=== PATIENT | male | born 1940 | race Caucasian/White ===

== ENCOUNTER 2019-03-07 09:37 | Inpatient (IN) ==
[2019-03-07] MEDS ORDERED: Ipratropium/Albuterol Neb 3 ML IH ONE (10:28)
--- NOTE | 2019-03-07 10:29 | Emergency Department Note ---
Disposition Clinical Impression: Cough, Elevated troponin, NSTEMI (non-ST elevated myocardial infarction) Chest pain Qualifiers: Chest pain type: unspecified Qualified Code(s): R07.9 - Chest pain, unspecified Abdominal pain Qualifiers: Abdominal location: lower abdomen, unspecified Qualified Code(s): R10.30 - Lower abdominal pain, unspecified Disposition: Admitted As Inpatient Condition: Undetermined Referrals: Kd Rod MD [Primary Care Provider] - Forms: ED Satisfaction Letter, Work/School Release Time of Disposition: 13:20 General Adult HPI - General Chief complaint: ED General Medical Stated complaint: Cough Time Seen by Provider: 03/07/19 09:49 Source: patient Mode of arrival: private vehicle Limitations: no limitations Nursing Notes Reviewed: Yes Vital Signs Reviewed: Yes - History of Present Illness HPI Narrative: Patient is a 78-year-old male with past medical history including hypertension and GERD presenting with a chief complaint of cough, low back pain, lower abdominal pain. The patient states for the past 4 weeks, he complains of a chronic cough. He states intermittently he will cough up yellowish sputum. She denies fevers or chills. He states he has a remote history of smoking and has no diagnosis of COPD, does not wear oxygen. He denies history of coronary artery disease as well. He complains of intermittent episodes of left-sided chest pain when he is working or ambulating. He states it does not happen all the time. This last occurred 1-1/2 weeks ago. Symptoms resolve with rest and only lasts several minutes. He states he used to be on aspirin however stopped it many months ago. With the chest pain started, he resumed his aspirin. He states once he resumed his aspirin he has had no further episodes. He denies shortness of breath, nausea, diaphoresis with these episodes. He states this is new for him. For the past week, he complains of progressively worsening lower abdominal pain radiating into his lower back pain the last 2 days. He does have a prior history of back surgery and denies trauma or recent infection. He denies history of IV drug use. He denies weakness, urinary incontinence, urinary retention, bowel incontinence, fevers, perianal numbness, lower extremity numbness. He denies headaches. Pain Scale: 9 - Related Data Allergies Allergy/AdvReac Type Severity Reaction Status Date / Time No Known Allergies Allergy Verified 03/07/19 09:43 All systems ED: reviewed and negative except as stated. Review of Systems: As Per HPI Constitutional: Denies: fever, chills ENT ED: Denies: congestion Cardiovascular: Reports: chest pain. Denies: palpitations Respiratory: Reports: cough, dyspnea Gastrointestinal: Reports: abdominal pain. Denies: nausea, vomiting, diarrhea, melena, hematochezia Genitourinary: Denies: dysuria Musculoskeletal: Reports: back pain. Denies: neck pain Neurological: Denies: headache, weakness, numbness, paresthesias, confusion, abnormal gait Past Medical History - Past Medical History Attestation: Yes The following information was validated with the patient. Source: patient Physical Exam - General Limitations: no limitations General appearance: alert, in no apparent distress - Head Head exam: atraumatic, normocephalic - Eye Eye exam: Present: normal appearance, EOMI - ENT ENT exam: normal exam, normal oropharynx, mucous membranes moist - Neck Neck exam: Present: normal inspection, trachea midline - Chest Chest inspection: Present: normal inspection, symmetric chest wall rise - Respiratory Respiratory exam: Present: other (Diminished breath sounds bilaterally with bilateral expiratory wheezing). Absent: respiratory distress, accessory muscle use - Cardiovascular Cardiovascular exam: Present: regular rate, normal rhythm, normal heart sounds, other (bilateral radial, dorsalis pedis, posterior tibialis pulses intact) - Abdominal Exam Abdominal exam: Present: soft, Non-Tender. Absent: distention - Extremities Exam Extremities exam: Present: normal capillary refill. Absent: pedal edema, calf tenderness - Back Exam Back exam: Present: normal inspection, other (Lumbar midline spinal incision well-healed without cellulitic changes or drainage). Absent: tenderness - Neurological Exam Neurological exam: Present: alert, oriented X3, CN II-XII intact. Absent: motor sensory deficit - Expanded Neurological Exam Cerebellar function: finger to nose: Normal Motor strength - LUE: 5/5 Motor strength - RUE: 5/5 Motor strength - LLE: 5/5 Motor strength - RLE: 5/5 Upper motor neuron exam: dinah neglect: Absent bilaterally Sensory exam upper extremity: light touch: Normal Sensory exam lower extremity: light touch: Normal - Psychiatric Psychiatric exam: Present: normal affect, normal mood - Skin Skin exam: Present: warm, dry. Absent: diaphoresis, pallor Course Vital Signs Temperature 98.6 F 03/07/19 09:42 Pulse Rate 56 03/07/19 09:42 Respiratory Rate 18 03/07/19 09:42 Blood Pressure 165/79 03/07/19 09:42 O2 Sat by Pulse Oximetry 96 03/07/19 09:42 Temperature 98.6 F 03/07/19 10:43 Pulse Rate 55 03/07/19 12:21 Respiratory Rate 18 03/07/19 12:21 Blood Pressure 150/65 03/07/19 12:21 O2 Sat by Pulse Oximetry 97 03/07/19 12:21 Oxygen Delivery Oxygen Delivery Room Air Medical Decision Making - MDM Narrative Medical decision making narrative: Patient is presenting with multiple complaints. He is afebrile and vitals are stable. No gross abnormalities on physical examination. He does have diminished breath sounds with mild expiratory wheezing bilaterally. We will give him DuoNeb treatment. Will also further evaluate with chest x-ray as he has a four-week history of a cough. We will also obtain ACS workup for his chest pain. His last chest pain was one and half weeks ago. He is resumed his aspirin. He has no history of coronary artery disease or stent placement. We will also obtain CT abdomen and pelvis without contrast to evaluate for any stones or acute abnormality for his abdominal and back pain. Urinalysis will also be obtained. Disposition is pending workup. 11:45 Patient has elevated troponin and no chest pain here. No acute ischemic changes. Will give aspirin. We will start heparin. He will require admission. Cardiol ogy will be paged. He is chest pain-free at this time. D-dimer is not elevated. CXR shows no pneumonia. 12:40 CT abd and pelvis without acute abnormality. Discussed with Dr. Reid, Cardiology, who will be placed on consult. No further recommendations. Hospitalist paged for admission. 13:15 Discussed with hospitalist, Dr. Yanes, who accepts admission. - Medical Records Medical records reviewed: Yes I reviewed the patient's medical records. - Lab Data Lab results reviewed: Yes I reviewed the patient's lab results. Result diagrams: 03/07/19 12:46 03/07/19 10:44 Lab Results 03/07/19 03/07/19 03/07/19 Range/Units 10:44 10:44 10:44 WBC 6.2 (4.3-11.1) K/mcL RBC 4.82 (4.19-5.50) M/mcL Hgb 15.1 (12.9-16.9) g/dL Hct 44.6 (37.5-50.1) % MCV 92.5 (83.0-100.0) fL MCH 31.3 (28.0-33.3) pg MCHC 33.9 (31.6-35.5) g/dL RDW 13.0 (11.5-14.5) % Plt Count 135 L (140-400) K/mcL MPV 11.7 (9.4-12.4) fL Immature Gran % 0.3 (0-4) % Seg Neutrophils % 73.6 % Lymphocytes % 10.8 % Monocytes % 14.2 % Eosinophils % 0.5 % Basophils % 0.6 % Neutrophils # 4.6 (1.6-8.9) K/mcL Lymphocytes # 0.7 (0.6-4.6) K/mcL Monocytes # 0.9 (0.0-1.3) K/mcL Eosinophils # 0.0 (0.0-0.6) K/mcL Basophils # 0.0 (0.0-0.2) K/mcL PT (9.4-12.1) Seconds INR D-Dimer 419 (0-500) ng/mLFEU Heparin Anti-Xa, Unfract (0.30-0.70) IU/mL Sodium 135 L (136-145) mEq/L Potassium 3.5 (3.5-5.1) mEq/L Chloride 97 L (98-107) mEq/L Carbon Dioxide 30 H (23-29) mEq/L BUN 21 (8-23) mg/dL Creatinine 0.88 (0.70-1.30) mg/dL Est GFR ( Amer) > 60 (> 60) Est GFR (Non-Af Amer) > 60 (> 60) BUN/Creatinine Ratio 24 (6-26) Glucose 112 H (70-105) mg/dL Calculated Osmolality 284 (280-300) Calcium 9.4 (8.6-10.3) mg/dL Total Bilirubin 0.5 (0.3-1.0) mg/dL Direct Bilirubin 0.2 (0.0-0.2) mg/dL Indirect Bilirubin 0.3 (0.0-1.2) mg/dL AST 48 H (13-39) Units/L ALT 29 (7-52) Units/L Alkaline Phosphatase 44 (34-104) Units/L Troponin I 0.36 H* (< 0.04) ng/mL Serum Total Protein 6.9 (6.4-8.9) g/dL Albumin 4.7 (3.5-5.7) g/dL Globulin 2.2 L (2.4-3.5) g/dL Albumin/Globulin Ratio 2.1 (1.1-2.2) Lipase 29 (11-82) Units/L Urine Color (Yellow) Urine Clarity (Clear) Urine pH (5.0-8.0) pH Units Ur Specific [place] (1.010-1.025) Urine Protein (Neg-Trace) mg/dL Urine Glucose (UA) (Normal) mg/dL Urine Ketones (Negative) mg/dL Urine Blood (Negative) Urine Nitrite (Negative) Urine Bilirubin (Negative) Urine Urobilinogen (Normal) mg/dL Ur Leukocyte Esterase (Negative) Urine Microscopic RBC (0-3) per hpf Urine Microscopic WBC (0-3) per hpf Ur Squamous Epith Cells (None-Few) per lpf Amorphous Sediment (Few) Urine Bacteria (None-Few) per hpf Hyaline Casts (None-Few) per lpf Ur Culture Indicated? (NO) 03/07/19 03/07/19 03/07/19 Range/Units 11:13 12:46 12:46 WBC 6.1 (4.3-11.1) K/mcL RBC 4.88 (4.19-5.50) M/mcL Hgb 15.0 (12.9-16.9) g/dL Hct 45.4 (37.5-50.1) % MCV 93.0 (83.0-100.0) fL MCH 30.7 (28.0-33.3) pg MCHC 33.0 (31.6-35.5) g/dL RDW 13.1 (11.5-14.5) % Plt Count 127 L (140-400) K/mcL MPV 11.2 (9.4-12.4) fL Immature Gran % (0-4) % Seg Neutrophils % % Lymphocytes % % Monocytes % % Eosinophils % % Basophils % % Neutrophils # (1.6-8.9) K/mcL Lymphocytes # (0.6-4.6) K/mcL Monocytes # (0.0-1.3) K/mcL Eosinophils # (0.0-0.6) K/mcL Basophils # (0.0-0.2) K/mcL PT 11.4 (9.4-12.1) Seconds INR 1.0 D-Dimer (0-500) ng/mLFEU Heparin Anti-Xa, Unfract 0.01 L (0.30-0.70) IU/mL Sodium (136-145) mEq/L Potassium (3.5-5.1) mEq/L Chloride (98-107) mEq/L Carbon Dioxide (23-29) mEq/L BUN (8-23) mg/dL Creatinine (0.70-1.30) mg/dL Est GFR ( Amer) (> 60) Est GFR (Non-Af Amer) (> 60) BUN/Creatinine Ratio (6-26) Glucose (70-105) mg/dL Calculated Osmolality (280-300) Calcium (8.6-10.3) mg/dL Total Bilirubin (0.3-1.0) mg/dL Direct Bilirubin (0.0-0.2) mg/dL Indirect Bilirubin (0.0-1.2) mg/dL AST (13-39) Units/L ALT (7-52) Units/L Alkaline Phosphatase (34-104) Units/L Troponin I (< 0.04) ng/mL Serum Total Protein (6.4-8.9) g/dL Albumin (3.5-5.7) g/dL Globulin (2.4-3.5) g/dL Albumin/Globulin Ratio (1.1-2.2) Lipase (11-82) Units/L Urine Color Yellow (Yellow) Urine Clarity Cloudy A (Clear) Urine pH 8.0 (5.0-8.0) pH Units Ur Specific [place] 1.016 (1.010-1.025) Urine Protein Negative (Neg-Trace) mg/dL Urine Glucose (UA) Normal (Normal) mg/dL Urine Ketones Negative (Negative) mg/dL Urine Blood Negative (Negative) Urine Nitrite Negative (Negative) Urine Bilirubin Negative (Negative) Urine Urobilinogen Normal (Normal) mg/dL Ur Leukocyte Esterase Negative (Negative) Urine Microscopic RBC 0-3 (0-3) per hpf Urine Microscopic WBC 0-3 (0-3) per hpf Ur Squamous Epith Cells Moderate H (None-Few) per lpf Amorphous Sediment Moderate H (Few) Urine Bacteria None Seen (None-Few) per hpf Hyaline Casts None Seen (None-Few) per lpf Ur Culture Indicated? NO (NO) - Radiology Data Radiology results reviewed: Yes I reviewed the patient's radiology results. Abdomen/Pelvis CT 03/07/19 10:27 IMPRESSION: No acute findings. D/ / 03/07/2019 12:40:58 Blair Swenson MD / aixa Interpreting Provider: Blair Swenson MD Chest X-Ray 03/07/19 10:28 IMPRESSION: No acute cardiopulmonary process. D/ / Iva Sanches MD / Iva Sanches MD Interpreting Provider: Iva Sanches MD - EKG Data EKG #1 EKG attestation: Yes I reviewed and interpreted this EKG. EKG results narrative: EKG obtained at 0 957 shows sinus rhythm with heart rate 53, DE interval 196, QRS duration 111, QTC 423. No ST elevation. 0.[address] depression in V6. No reciprocal changes. No old EKG to compare to. Critical Care Time Critical Care Time: Yes Total Critical Care Time: 35 Attestation: Critical care time for this patient was 35 minutes managing an STEMI and heparin drip. Attestation Statement - Attestation Attestation: Patient was seen with resident physician. I reviewed the history, physical, assessment and plan, and agree with the findings. I also personally evaluated this patient and had [id number] time with this patient. 78-year-old male presents to Department with 3 primary complaints first is shortness of breath this ultimately is what prompted his visit. Second toe is cough and when he coughs he has both back pain and abdominal pain. The pain is in the lower back in the anterior portion the abdomen which she feels is more distended than usual. He says he only experiences the pain with cough not with movement. He says his cough has been so bad that he will cough to the point that he really feels like he cannot stop. He said his is recently had an upper rest for infection he feels like he may have caught her. He denies fevers or chills. He does have a history of some chest discomfort when he was doing work approximately week ago. Patient states that he had been on a daily aspirin but then discontinued use and then he developed this chest discomfort and he restarted the aspirin he has not had a problem since. Review of systems as above remainder negative. Physical exam vital signs are stable. ENT is unremarkable. Heart regular rhythm and rate. Lungs largely clear. Possibly some mild crackles in the bases. No increased work of breathing. Abdomen is soft and mildly distended nontender. Extremities unremarkable. Neurologically intact. Skin no rashes. Psych normal. ED course. With the patient's age we will do cardiac workup as well as a CT scan the abdomen and pelvis. We will also treat with some breathing treatments. Initial EKG showed a sinus rhythm without acute abnormalities except for a 0.[address] depression in one lead only V6. Patient's troponin however came back positive. The remainder is negative was largely unremarkable. We discussed with cardiology. He was started on heparin and aspirin. Results of the findings were explained to the patient and family. We discussed then with the hospitalist service to arrange for admission. They agreed to accept the patient. Critical care time 35 minutes. Hemodynamically he was stable throughout his stay. Agree with resident physician assessment and plan per
[2019-03-07 11:12] LABS: Basophils % 0.6 %; Eosinophils % 0.5 %; Hematocrit 44.6 % (37.5-50.1); Hemoglobin 15.1 g/dL (12.9-16.9); Immature Granulocytes % 0.3 % (0-4); Lymphocytes # 0.7 K/mcL (0.6-4.6); Lymphocytes % 10.8 %; Mean Corpuscular HGB Conc 33.9 g/dL (31.6-35.5); Mean Corpuscular Hemoglobin 31.3 pg (28.0-33.3); Mean Corpuscular Volume 92.5 fL (83.0-100.0); Mean Platelet Volume 11.7 fL (9.4-12.4); Monocytes # 0.9 K/mcL (0.0-1.3); Monocytes % 14.2 %; Neutrophils # 4.6 K/mcL (1.6-8.9); Platelet Count 135 K/mcL (140-400); Red Blood Count 4.82 M/mcL (4.19-5.50); Segmented Neutrophils % 73.6 %
[2019-03-07 11:23] LABS: Bilirubin,Urine Negative (Negative); Blood,Urine Negative (Negative); Clarity,Urine Cloudy (Clear); Color,Urine Yellow (Yellow); Glucose,Urine (UA) Normal (Normal); Ketones,Urine Negative (Negative); Leukocyte Esterase,Urine Negative (Negative); Nitrite,Urine Negative (Negative); Protein,Urine Negative (Neg-Trace); Specific Gravity,Urine 1.016 (1.010-1.025); Urobilinogen,Urine Normal (Normal)
[2019-03-07 11:25] LABS: Bacteria,Urine None Seen per hpf (None-Few); Hyaline Casts,Urine None Seen per lpf (None-Few); Squamous Epithelial Cell,Urine Moderate per lpf (None-Few); WBC,Urine 0-3 per hpf (0-3)
[2019-03-07 11:32] LABS: Amorphous Sediment,Urine Moderate (Few); RBC,Urine 0-3 per hpf (0-3)
[2019-03-07 11:37] LABS: Alanine Aminotransferase 29 Units/L (7-52); Albumin 4.7 g/dL (3.5-5.7); Albumin/Globulin Ratio 2.1 (1.1-2.2); Alkaline Phosphatase 44 Units/L (34-104); Aspartate Amino Transferase 48 Units/L (13-39); BUN/Creatinine Ratio 24 (6-26); Bilirubin,Direct 0.2 mg/dL (0.0-0.2); Bilirubin,Indirect 0.3 mg/dL (0.0-1.2); Bilirubin,Total 0.5 mg/dL (0.3-1.0); Blood Urea Nitrogen 21 mg/dL (8-23); Calcium 9.4 mg/dL (8.6-10.3); Carbon Dioxide 30 mEq/L (23-29); Chloride 97 mEq/L (98-107); Globulin 2.2 g/dL (2.4-3.5); Glucose 112 mg/dL (70-105); Lipase 29 Units/L (11-82); Osmolality,Calculated 284 (280-300); Potassium 3.5 mEq/L (3.5-5.1); Sodium 135 mEq/L (136-145); Total Protein 6.9 g/dL (6.4-8.9); Troponin I 0.36 ng/mL (< 0.04); eGFR For Non-African Americans > 60 (> 60)
[2019-03-07] MEDS ORDERED: Aspirin 81 MG TAB.CHEW PO ONE (11:40)
[2019-03-07] MEDS ORDERED: *HR* Heparin 5,000 UNIT/ML VIAL IVP ONE (12:23)
[2019-03-07] MEDS ORDERED: *HR* Heparin 5,000 UNIT/ML VIAL IVP PRN ×2 (12:23)
[2019-03-07] MEDS: Heparin 25,000 UNIT/250 ML D5W 25,000 UNIT/250 ML IV.SOLN IVC SCH (12:53)
[2019-03-07 13:05] LABS: Hematocrit 45.4 % (37.5-50.1); Mean Corpuscular Hemoglobin 30.7 pg (28.0-33.3); Mean Platelet Volume 11.2 fL (9.4-12.4); Platelet Count 127 K/mcL (140-400); Red Blood Count 4.88 M/mcL (4.19-5.50); Red Cell Distribution Width 13.1 % (11.5-14.5)
[2019-03-07 13:12] LABS: Heparin anti-factor XA UFH 0.01 IU/mL (0.30-0.70)
[2019-03-07 13:13] LABS: Prothrombin Time 11.4 Seconds (9.4-12.1)
[2019-03-07] MEDS ORDERED: *HR* HYDROcodone/Acet 5/325 mg TABLET PO PRN (13:46)
[2019-03-07] MEDS ORDERED: Ondansetron 4 MG/2 ML VIAL IVP PRN (13:46)
[2019-03-07] MEDS ORDERED: Naloxone 0.4 MG/ML INJ IVP PRN (13:46)
[2019-03-07] MEDS ORDERED: Acetaminophen 325 MG TABLET PO PRN (13:46)
[2019-03-07] MEDS ORDERED: traMADol 50 MG TABLET PO PRN (13:46)
--- NOTE | 2019-03-07 13:51 | Internal Med History&Physical ---
Date of Encounter: 03/07/19 Time of Encounter: 13:20 Internal Medicine - H&P: HPI Chief complaint: chest pain and dyspnea on exertion, cough Admitted From: Home History of present illness: Mr. Zuniga is a 78 year old male with history of hypertension, HLD, GERD, ex- tobacco use, who presented to the ED with 4 week history of cough. Also complai ns of intermittent left-sided chest pain, SOB, and left arm numbness on exertion. 6-7/10, sharp, no obvious relieving factor. He was also spitting up clear phlegm for the last few days. Denies any fever/chills, nausea/vomiting, diaphoresis, palpitation, orthopnea, PND, or leg swelling. No sick contacts. His other complaint was that of chronic low back pain. No change in bowel habits, urinary/fecal incontinence, or numbness on his buttocks. Denies any dysuria, hematuria, or urinary frequency. In the ED, he was afebrile and hemodynamically stable. Labwork showed troponin of 0.36 with EKG demonstrating Q-waves in lead 3 and aVF. QTc was 423 ms. X-ray was negative for any acute cardiopulmonary process and d-dimer was normal. Patient was loaded with aspirin, started heparin drip, duoneb, and admitted for further management with cardiac consultation. Past Med Surg Social Fam HX - Past Medical History Attestation: Yes The following information was validated with the patient. Medical history: GERD, hyperlipidemia, hypertension Psychiatric history: no psych history - Past Surgical History Additional surgical history: back surgery x 2 - Social History Smoking Status: Former smoker Smokeless Tobacco Status: No Alcohol use: none Drug use: none - Additional Family History Additional family history: No family history of premature CAD Internal Medicine - H&P: Meds Allergy/AdvReac Type Severity Reaction Status Date / Time No Known Allergies Allergy Verified 03/07/19 09:43 All Systems PM: A 10-system review of systems was performed and is negative for pertinent findings except as documented above in the HPI. - Constitutional Vitals: Temp Pulse Resp BP Pulse Ox 98.6 F 55 18 150/65 97 03/07/19 10:43 03/07/19 12:21 03/07/19 12:21 03/07/19 12:21 03/07/19 12:21 Exam: General: Alert and oriented, not in acute distress. HEENT:EOMI, pupils equal, round and reactive. Cardiovascular:Normal S1 & S2, No JVD. Pulse regular. Lungs: Minimal wheezes at the left lung base Abdomen:Soft, non-tender, no rebound/guarding/rigidity. Extremities:No deformity or swelling Neurological:Normal cognition and motor skills. Non-focal Skin:Normal color, no rash, no lesions. Pulses:Carotid and radial pulses normal +2. Rest of the physical exam is non contributory Internal Med - H&P Results - Labs CBC & Chem 7: 03/07/19 12:46 03/07/19 10:44 Labs: Short CBC 03/07/19 03/07/19 Range/Units 10:44 12:46 WBC 6.2 6.1 (4.3-11.1) K/mcL Hgb 15.1 15.0 (12.9-16.9) g/dL Hct 44.6 45.4 (37.5-50.1) % Plt Count 135 L 127 L (140-400) K/mcL Neutrophils # 4.6 (1.6-8.9) K/mcL BMP 03/07/19 10:44 Sodium 135 L Potassium 3.5 Chloride 97 L Carbon Dioxide 30 H BUN 21 Creatinine 0.88 Glucose 112 H Calcium 9.4 Cardiac Enzymes 03/07/19 Range/Units 10:44 Troponin I 0.36 H* (< 0.04) ng/mL Liver Function 03/07/19 Range/Units 10:44 Total Bilirubin 0.5 (0.3-1.0) mg/dL Direct Bilirubin 0.2 (0.0-0.2) mg/dL AST 48 H (13-39) Units/L ALT 29 (7-52) Units/L Alkaline Phosphatase 44 (34-104) Units/L Albumin 4.7 (3.5-5.7) g/dL Urine 03/07/19 Range/Units 11:13 Urine Color Yellow (Yellow) Urine Clarity Cloudy A (Clear) Urine pH 8.0 (5.0-8.0) pH Units Ur Specific [place] 1.016 (1.010-1.025) Urine Protein Negative (Neg-Trace) mg/dL Urine Glucose (UA) Normal (Normal) mg/dL - Impressions ITS Impressions Abdomen/Pelvis CT 03/07/19 10:27 IMPRESSION: No acute findings. D/ / 03/07/2019 12:40:58 Blair Swenson MD / aixa Interpreting Provider: Blair Swenson MD Chest X-Ray 03/07/19 10:28 IMPRESSION: No acute cardiopulmonary process. D/ / Iva Sanches MD / Iva Sanches MD Interpreting Provider: Iva Sanches MD - Assessment and Plan (1) NSTEMI (non-ST elevated myocardial infarction) Current Visit: Yes Status: Acute Assessment and plan: Presented with chronic cough but also with dyspnea and chest pain on exertion hx of HTN, HLD, ex-tobacco use troponin 0.36 with EKG showing Q waves in III, aVF. No ST elevation loaded with ASA, continue 81mg daily Continue heparin drip Statin to Lipitor 80 mg at bedtime Start beta duran trend troponin, telemetry A1c, lipid panel tomorrow echocardiogram cardiology consult, will pre-emptively keep him NPO after midnight (2) Cough Current Visit: Yes Status: Acute Assessment and plan: History of tobacco use, not sure if he is also on lisinopril at home for HTN endorses worsening cough with minimal sputum production. Noted to be wheezing on presentation which is not as prominent at the time of my exam will treat as per mild COPD exacerbation with PO Prednisone and bronchodilators outpatient PFT (3) Hypertension Current Visit: Yes Status: Chronic Assessment and plan: Beta duran started as above Qualifiers: Hypertension type: essential hypertension Qualified Code(s): I10 - Essential (primary) hypertension (4) Hyperlipidemia Current Visit: Yes Status: Chronic Assessment and plan: Statin switched to Lipitor Qualifiers: Hyperlipidemia type: unspecified Qualified Code(s): E78.5 - Hyperlipidemia, unspecified (5) DVT prophylaxis Current Visit: Yes Status: Acute Assessment and plan: hep gtt - Time Spent With Patient Total time spent is greater than 50% in coordination of care (as documented) at patient's floor/unit and/or counseling patient: Greater than 35 minutes
[2019-03-07] MEDS: Ipratropium/Albuterol Neb 3 ML IH SCH ×3 (16:15→23:57)
[2019-03-07] MEDS: predniSONE 20 MG TABLET PO SCH (16:23)
[2019-03-08 01:54] LABS: Basophils % 0.1 %; Hematocrit 43.1 % (37.5-50.1); Hemoglobin 14.5 g/dL (12.9-16.9); Immature Granulocytes % 0.4 % (0-4); Lymphocytes # 0.6 K/mcL (0.6-4.6); Lymphocytes % 9.2 %; Mean Corpuscular HGB Conc 33.6 g/dL (31.6-35.5); Mean Corpuscular Volume 92.1 fL (83.0-100.0); Mean Platelet Volume 11.2 fL (9.4-12.4); Monocytes # 0.4 K/mcL (0.0-1.3); Monocytes % 5.9 %; Neutrophils # 5.7 K/mcL (1.6-8.9); Platelet Count 127 K/mcL (140-400); Red Blood Count 4.68 M/mcL (4.19-5.50); Red Cell Distribution Width 12.9 % (11.5-14.5); Segmented Neutrophils % 84.4 %
[2019-03-08 02:13] LABS: BUN/Creatinine Ratio 21 (6-26); Blood Urea Nitrogen 19 mg/dL (8-23); Calcium 9.1 mg/dL (8.6-10.3); Carbon Dioxide 28 mEq/L (23-29); Chloride 92 mEq/L (98-107); Glucose 167 mg/dL (70-105); Osmolality,Calculated 274 (280-300); Potassium 3.4 mEq/L (3.5-5.1); Sodium 129 mEq/L (136-145); eGFR For Non-African Americans > 60 (> 60)
[2019-03-08 02:14] LABS: Chol/HDL Ratio 2.7 (0-4.9)
[2019-03-08] MEDS: Ipratropium/Albuterol Neb 3 ML IH SCH ×6 (04:06→23:59)
[2019-03-08 07:54] LABS: Estimated Average Glucose 131 mg/dl; Hemoglobin A1C 6.2 %
[2019-03-08] MEDS: Aspirin Enteric Coated 81 MG Tablet PO SCH (08:43)
[2019-03-08] MEDS: predniSONE 20 MG TABLET PO SCH (08:43)
--- NOTE | 2019-03-08 09:18 | Cardiology Consult Note ---
Date of Encounter: 03/08/19 Time of Encounter: 07:30 Assessment and Plan (1) NSTEMI (non-ST elevated myocardial infarction) Current Visit: Yes Status: Acute Peak troponin 0.36 in the setting of cough; describes symptoms consistent with UA. Chest pain free upon exam, ECG upon admission shows inferior Q waves. No prior CV history. Continue heparin gtt, asa, statin, and BB. TTE pending. A/R/B of [facility] with possible PCI discussed, he is agreeable to proceed. NPO after MN except medications, plan for [facility] on 03/09/19. Discussion w patient/family: The assessment and plan as outlined above was discussed with the patient and/or family members who expressed understanding and agreement. All questions were answered. Thank you for involving us in the care of your patient. Please call with any questions. The patient will be discussed and reviewed with Dr. Reid; changes to be made accordingly. History of Present Illness Consult date: 03/08/19 Requesting physician: Ramu aCm Consult reason: Elevated trop Chief complaint: Cough History of present illness: Mr. Zuniga is a 78 year old male hypertension, HLD, GERD, ex-tobacco use, who presented to the ED with 4 week history of cough. Reports cough associated with dyspnea and sputum production continued to worsen which prompted ED evaluation. Upon further review, he complaints of midsternal "indigestion" associated with exertion/activity--particularly while walking up incline and carrying water bucket. Midsternal chest discomfort radiates bilateral arms, lasts 10-20 minutes and improves with rest. Cardiology consulted for elevated troponin, peak 0.36 with downtrend. He is chest pain free upon exam today. ECG show inferior Q waves. No prior CV testing. Past Med Surg Social Fam HX - Past Medical History Attestation: Yes The following information was validated with the patient. Source: patient Medical history: GERD, hyperlipidemia, hypertension Psychiatric history: no psych history - Past Surgical History Additional surgical history: back surgery x 2 - Social History Smoking Status: Former smoker Smokeless Tobacco Status: No Alcohol use: none Drug use: none - Family History Mother History Unknown: Yes Father Hx Family Cardiac Disorders: Yes (HI) Hx Family Cancer: Yes (Colon) Hx Family Endocrine Disorder: Yes (DM) Hx Family Musculoskeletal Disorders: Yes (Amputation) Medications and Allergies Allergy/AdvReac Type Severity Reaction Status Date / Time No Known Allergies Allergy Verified 03/07/19 09:43 All Systems Review: The remainder of the systems were reviewed and are negative - Cardiovascular Cardiovascular: as per HPI Physical Examination Vital Signs, Last 4 Hours Temp Pulse Resp BP Pulse Ox 03/08/19 07:23 17 96 03/08/19 07:16 98.3 F 67 17 135/67 96 General: Conversant, No Apparent Distress HEENT: Atraumatic, Normocephaly, Mucus Membranes Moist Neck: No JVD, Normal carotid pulses Cardiac: Reg Rate and Rhythm, Normal S1 and S2, No Murmur Lungs: Normal Breath Sounds, No Wheeze, Rales, Rhonchi Neuro: Alert and responsive, No focal deficits noted Abdomen: Soft, Non-Tender Skin: No rashes noted on visualized skin Musculoskeletal: No Chest Wall Tenderness Extremities: No Clubbing, No Cyanosis, No Edema, Normal Pulses Results 03/08/19 01:35 03/08/19 01:35 Lab Results 03/07/19 03/07/19 03/07/19 10:44 10:44 10:44 WBC 6.2 Hgb 15.1 Hct 44.6 Plt Count 135 L INR D-Dimer 419 Sodium 135 L Potassium 3.5 Chloride 97 L Carbon Dioxide 30 H BUN 21 Creatinine 0.88 Glucose 112 H Calcium 9.4 Total Bilirubin 0.5 AST 48 H ALT 29 Alkaline Phosphatase 44 Troponin I 0.36 H* Lipase 29 03/07/19 03/07/19 03/07/19 12:46 12:46 17:31 WBC 6.1 Hgb 15.0 Hct 45.4 Plt Count 127 L INR 1.0 D-Dimer Sodium Potassium Chloride Carbon Dioxide BUN Creatinine Glucose Calcium Total Bilirubin AST ALT Alkaline Phosphatase Troponin I 0.31 H* Lipase 03/07/19 03/08/19 03/08/19 22:58 01:35 01:35 WBC 6.8 Hgb 14.5 Hct 43.1 Plt Count 127 L INR D-Dimer Sodium 129 L Potassium 3.4 L Chloride 92 L Carbon Dioxide 28 BUN 19 Creatinine 0.91 Glucose 167 H Calcium 9.1 Total Bilirubin AST ALT Alkaline Phosphatase Troponin I 0.18 H* Lipase Active Medications Acetaminophen (Tylenol) 650 mg PO Q6HR PRN PRN Reason: Mild Pain/Fever Stop: 09/06/19 13:47 Hydrocodone Bitart/Acetaminophen ([place] 5-325 Mg) 1 tab PO Q6HR PRN PRN Reason: Severe Pain Stop: 09/06/19 13:47 Albuterol/Ipratropium (Duoneb) 3 ml IH [id number] [facility] Stop: 09/06/19 16:01 Last Admin: 03/08/19 07:23 Dose: 3 ml Documented by: Aspirin (Aspirin Ec) 81 mg PO DAILY [facility] Stop: 09/07/19 09:01 Last Admin: 03/08/19 08:43 Dose: 81 mg Documented by: Atorvastatin Calcium (Lipitor) 80 mg PO HS [facility] Stop: 09/06/19 21:01 Last Admin: 03/07/19 20:42 Dose: 80 mg Documented by: Heparin Sodium (Porcine) (Heparin) 4,000 unit IVP Q6HR PRN PRN Reason: SEE COMMENTS Stop: 09/06/19 12:24 Heparin Sodium (Porcine) (Heparin) 2,000 unit IVP Q6H PRN PRN Reason: SEE COMMENTS Stop: 09/06/19 12:24 Heparin Sodium/Dextrose (Heparin 25,000 Unit/250 Ml D5w) 25,000 unit in 250 mls @ 9.29 mls/hr IVC .Q24H [facility]; Protocol Stop: 09/06/19 12:31 Last Titration: 03/08/19 02:11 Dose: 11.96 unit/kg/hr, 10.1 mls/hr Documented by: Metoprolol Tartrate (Lopressor) 12.5 mg PO BID [facility] Stop: 09/06/19 21:01 Last Admin: 03/08/19 08:43 Dose: 12.5 mg Documented by: Naloxone HCl (Narcan) 0.4 mg IVP Q2MPRN PRN PRN Reason: SEE COMMENTS Stop: 09/06/19 13:47 Ondansetron HCl (Zofran) 4 mg IVP Q8HR PRN PRN Reason: Nausea And Vomiting Stop: 09/06/19 13:47 Prednisone (Prednisone) 40 mg PO DAILY [facility] Stop: 09/06/19 14:01 Last Admin: 03/08/19 08:43 Dose: 40 mg Documented by: Tramadol HCl (Ultram) 50 mg PO Q6HR PRN PRN Reason: Moderate Pain Stop: 09/06/19 13:47 - Imaging and Cardiology Echo: pending Other Results: 12 hour tele: avg hR=76 SR. - EKG Interpretation EKG results cardiology: personally reviewed Consult Discharge Plan - Plan Referrals: Kd Rod MD [Primary Care Provider] -
--- NOTE | 2019-03-08 09:39 | Internal Med Progress Note ---
Hospitalist Progress Note - Encounter Date of Encounter: 03/08/19 Time of Encounter: 07:30 - Subjective Interval History: Patient states that he had intermittent episodes of left-sided chest discomfort but nothing that warranted administration of nitroglycerin or analgesics. No fever overnight. Denies any palpitation, nausea/vomiting, or diaphoresis. - Exam Vitals: Temp Pulse Resp BP Pulse Ox 98.3 F 67 17 135/67 96 03/08/19 07:16 03/08/19 07:16 03/08/19 07:23 03/08/19 07:16 03/08/19 07:23 Exam: General: Alert and oriented, not in acute distress. Cardiovascular:Normal S1 & S2, No JVD. Pulse regular. Lungs: Minimal wheezes at the left lung base Abdomen:Soft, non-tender, no rebound/guarding/rigidity. Extremities:No deformity or swelling Neurological:Normal cognition and motor skills. Non-focal - Assessment and Plan (1) NSTEMI (non-ST elevated myocardial infarction) Current Visit: Yes Status: Acute Assessment and Plan: Presented with chronic cough but also with dyspnea and chest pain on exertion hx of HTN, HLD, ex-tobacco use troponin 0.36 with EKG showing Q waves in III, aVF. No ST elevation downtrending troponin since the presentation ASA, hep gtt, bb, statin A1c 6.2, lipid panel unremarkable echocardiogram pending cardiology input appreciated, for [facility] tomorrow (2) Cough Current Visit: Yes Status: Acute Assessment and Plan: History of tobacco use, not sure if he is also on lisinopril at home for HTN endorses worsening cough with minimal sputum production. Noted to be wheezing on presentation which is not as prominent at the time of my exam will treat as per mild COPD exacerbation with PO Prednisone and bronchodilators outpatient PFT (3) Hypertension Current Visit: Yes Status: Chronic Assessment and Plan: Beta duran started as above (4) Hyperlipidemia Current Visit: Yes Status: Chronic Assessment and Plan: Statin switched to Lipitor (5) DVT prophylaxis Current Visit: Yes Status: Acute Assessment and Plan: hep gtt - Time Spent with Patient Total time spent is greater than 50% in coordination of care (as documented) at patient's floor/unit and/or counseling patient: 25 - 35 minutes Plan of Care Discussed with: patient (discussed with RN) Internal Medicine: Result - Labs CBC & Chem 7: 03/08/19 01:35 03/08/19 01:35 Labs: Short CBC 03/07/19 03/07/19 03/08/19 Range/Units 10:44 12:46 01:35 WBC 6.2 6.1 6.8 (4.3-11.1) K/mcL Hgb 15.1 15.0 14.5 (12.9-16.9) g/dL Hct 44.6 45.4 43.1 (37.5-50.1) % Plt Count 135 L 127 L 127 L (140-400) K/mcL Neutrophils # 4.6 5.7 (1.6-8.9) K/mcL BMP 03/07/19 03/08/19 10:44 01:35 Sodium 135 L 129 L Potassium 3.5 3.4 L Chloride 97 L 92 L Carbon Dioxide 30 H 28 BUN 21 19 Creatinine 0.88 0.91 Glucose 112 H 167 H Calcium 9.4 9.1 Cardiac Enzymes 03/07/19 03/07/19 03/07/19 Range/Units 10:44 17:31 22:58 Troponin I 0.36 H* 0.31 H* 0.18 H* (< 0.04) ng/mL Liver Function 03/07/19 Range/Units 10:44 Total Bilirubin 0.5 (0.3-1.0) mg/dL Direct Bilirubin 0.2 (0.0-0.2) mg/dL AST 48 H (13-39) Units/L ALT 29 (7-52) Units/L Alkaline Phosphatase 44 (34-104) Units/L Albumin 4.7 (3.5-5.7) g/dL Urine 03/07/19 Range/Units 11:13 Urine Color Yellow (Yellow) Urine Clarity Cloudy A (Clear) Urine pH 8.0 (5.0-8.0) pH Units Ur Specific [place] 1.016 (1.010-1.025) Urine Protein Negative (Neg-Trace) mg/dL Urine Glucose (UA) Normal (Normal) mg/dL - ABG Interpretation ABG results: PT/INR, D-dimer PT 11.4 Seconds (9.4-12.1) 03/07/19 12:46 419 ng/mLFEU (0-500) 03/07/19 10:44 - Impressions Impressions Abdomen/Pelvis CT 03/07/19 10:27 IMPRESSION: No acute findings. D/ / 03/07/2019 12:40:58 Blair Swenson MD / aixa Interpreting Provider: Blair Swenson MD Chest X-Ray 03/07/19 10:28 IMPRESSION: No acute cardiopulmonary process. D/ / Iva Sanches MD / Iva Sanches MD Interpreting Provider: Iva Sanches MD Consult Discharge Plan - Plan Referrals: Kd Rod MD [Primary Care Provider] - __ (3) Hypertension Qualifiers: Hypertension type: essential hypertension Qualified Code(s): I10 - Essential (primary) hypertension (4) Hyperlipidemia Qualifiers: Hyperlipidemia type: unspecified Qualified Code(s): E78.5 - Hyperlipidemia, unspecified
[2019-03-08] MEDS: Heparin 25,000 UNIT/250 ML D5W 25,000 UNIT/250 ML IV.SOLN IVC SCH (12:11)
[2019-03-09 01:38] LABS: Hematocrit 43.2 % (37.5-50.1); Hemoglobin 14.6 g/dL (12.9-16.9); Mean Corpuscular HGB Conc 33.8 g/dL (31.6-35.5); Mean Corpuscular Hemoglobin 31.2 pg (28.0-33.3); Mean Corpuscular Volume 92.3 fL (83.0-100.0); Platelet Count 124 K/mcL (140-400); Red Blood Count 4.68 M/mcL (4.19-5.50)
[2019-03-09 01:55] LABS: BUN/Creatinine Ratio 21 (6-26); Blood Urea Nitrogen 19 mg/dL (8-23); Calcium 9.4 mg/dL (8.6-10.3); Carbon Dioxide 29 mEq/L (23-29); Chloride 90 mEq/L (98-107); Glucose 105 mg/dL (70-105); Magnesium 1.9 mg/dL (1.6-2.6); Osmolality,Calculated 271 (280-300); Potassium 3.3 mEq/L (3.5-5.1); Sodium 129 mEq/L (136-145); eGFR For Non-African Americans > 60 (> 60)
[2019-03-09] MEDS: Ipratropium/Albuterol Neb 3 ML IH SCH ×3 (04:48→11:04)
--- NOTE | 2019-03-09 06:27 | Electrocardiograph Report ---
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
[2019-03-09] MEDS ORDERED: Potassium Chloride 40 MEQ, Lidocaine 1% 2 ML in D5% in Water 500 ML IVPB ONE (07:14)
[2019-03-09] MEDS: Aspirin Enteric Coated 81 MG Tablet PO SCH (08:06)
[2019-03-09] MEDS: predniSONE 20 MG TABLET PO SCH (08:06)
[2019-03-09] MEDS ORDERED: 0.9 % Sodium Chloride 1,000 ML ONE ×2 (09:02→09:10)
[2019-03-09] MEDS ORDERED: ISOVUE-370 200 ML INFUS..BTL ONE (09:02)
[2019-03-09] MEDS ORDERED: *HR* Heparin 10,000 UNIT/10 ML VIAL ONE (09:02)
[2019-03-09] MEDS ORDERED: Heparin 1,000 UNITS/500 mL 500 ML ONE (09:02)
[2019-03-09] MEDS ORDERED: Nitroglycerin 1,000 MCG/10 ML VIAL IV ONE (09:03)
[2019-03-09] MEDS ORDERED: *HR* Midazolam HCl 2 MG/2 ML VIAL ONE (09:16)
[2019-03-09] MEDS ORDERED: *HR* FentaNYL (PF) 100 MCG/2 ML VIAL ONE (09:16)
--- NOTE | 2019-03-09 09:21 | Pre-Sedation Evaluation ---
Pre-sedation evaluation - Pre-sedation checklist Date of procedure: 03/09/19 Procedure: [facility] Recent Vitals: Last Vital Signs Temp 98.7 F 03/09/19 06:37 Pulse 76 03/09/19 06:37 Resp 14 03/09/19 07:29 BP 147/74 03/09/19 06:37 Pulse Ox 97 03/09/19 07:29 H&P (including ROS) documented in medical record: Yes Previous reaction to sedatives/anesthetics: No Dietary Status: NPO after Midnight Airway Assessment: Patient can open mouth completely, TMJ function normal, Micrognathia (under-bite, receding chin) absent, Neck with adequate range of mot ion Dentition: No loose teeth or bridges Possible difficult airway: No ASA Classification *see protocol: CLASS II-Mild systemic disease Plan of Care: Pt appropriate candidate for procedure/moderate/conscious sedation, Risks/benefits of procedure/sedation discussed w/ patient/family Cardiac Registry (Cardio Only) - Functional Capacity Functional Capacity: >=4 METS with symptoms - Clincal Frailty Scale Clinical Frailty Scale: Vulnerable
[2019-03-09] MEDS ORDERED: Verapamil 5 MG/2 ML VIAL ONE (09:36)
[2019-03-09] MEDS ORDERED: 0.9 % Sodium Chloride 1,000 ML IVC SCH (10:30)
[2019-03-09] MEDS ORDERED: Isosorbide MONOnitrate (24 HR) 30 MG TAB.ER.24H PO SCH (10:30)
--- NOTE | 2019-03-09 10:31 | Invasive Diagnostic Lab Proc ---
Name: Fariba Zuniga Date of Study: 03/09/2019 Date: 1940 Ht: 66.9in Medical Record#: [id number] Age: 78 Wt: 180.78lb Gender: Male BSA: 1.94 Order #: [id number] BMI: 28.37 Physicians Procedure Physician: Enedelia Reid MD, [facility] Referring MD: Referring MD: Staff Name Position Time In Papito, Angel RN Monitor 09:16 AM Alla Zhao RN Assembler Erector 09:16 AM Андрей Strickland RN Nurse 09:16 AM Enedelia Culver RT (R) Scrub orientee 09:16 AM Indications Indication Non-Stemi Procedures Performed Procedure L HRT ARTERY/VENTRICLE ANGIO Pre-Procedure Checklist Informed consent is complete signed and on chart. H&P is on chart. ID band is on and ID verified with patient. Patient NPO for procedure The procedure was described for the patient and questions were answered. Blood Pressure: 166/81 ECG is on chart. Rhythm: NSR Plan of Care Patient will tolerate the procedure without complications. Adequate level of comfort will be maintained. Hemodynamics will remain stable Patient will recover from procedure without complications. Respiratory function will be maintained. Cardiac rhythm will remain stable. Patient temperature will be maintained. Patient and/or family have verbalized understanding of the procedure. Patient Education Chief Complaint/Reason for Test: Cardiac Cath Developmental Category: Geriatric (65+ years) Developmentally Appropriate for Age: Yes Learning Barriers: None Education Needs: Procedure Education Method: Verbal Information Taught: Cardiac Cath Educational Evaluation: Able to repeat information Intravenous Access Time IV Size Location DC'd Fluid/Drip Rate Units RN 20g 1 /" Patent On Arrival Lt Antecubital 0.9NaCl ml/hr Allergies No Known Allergies Vital Signs Time BP (mmHg) HR (bpm) O2 Sat. RR (bpm) LOC 09:19 AM / % 5 = Fully awake and oriented or at pre-proc level 09:19 AM / % 4 = Oriented but drowsy 09:37 AM / % 4 = Oriented but drowsy 09:22 AM 166 / 81 73 95 % 09:26 AM 155 / 85 74 96 % 17 09:32 AM 168 / 75 76 95 % 16 09:36 AM 167 / 84 77 92 % 6 09:41 AM 167 / 86 70 90 % 18 09:46 AM 144 / 78 78 93 % 27 09:51 AM 157 / 70 74 96 % 09:56 AM 150 / 77 75 93 % 10:01 AM 147 / 75 71 96 % 9 09:52 AM / % 4 = Oriented but drowsy Procedural Medications Time Medication Dose Units Method Given By 09:19 AM Oxygen 2 L/min nasal cannula Alla Zhao RN 09:23 AM Versed 2 mg Intravenous Alla Zhao RN 09:23 AM Fentanyl 50 mcg Intravenous Alla Zhao RN 09:41 AM Lidocaine 2% 1 ml Subcutaneous Enedelia Reid MD, [facility] 09:45 AM Heparin 4000 units Nitroglycerin 200 mcg Verapamil 2.5 mg Intraarterial Enedelia Reid MD, [facility] ASA Classification: CLASS II- Mild systemic disease (i.e. well-controlled diabetes, hypertension, asthma, cigarette smoking) Claudine Score Preprocedure Postprocedure Activity 2- Moves 4 extremities sustained head lift Activity 2- Moves 4 extremities sustained head lift Circulation 2- SBP +/= 20 points of pre-anesthetic level Circulation 2- SBP +/= 20 points of pre-anesthetic level Consciousness 2- Awake and alert oriented x 3 Consciousness 2- Awake and alert oriented x 3 O2 Saturation 2- Able to maintain O2 satruation of 92% on room air O2 Saturation 2- Able to maintain O2 satruation of 92% on room air Respiratory 2- Able to deep breathe and cough well Respiratory 2- Able to deep breathe and cough well Total Score 10 Total Score 10 Contrast Agent: Isovue Diagnostic Contrast: 84 ml Total Contrast: 84 ml Fluoro Dose: 32 mGy Procedure Log Time Note Enter By 09:16 AM [email or web address] Angel Cobos RN Position: Monitor Time in: :16 [email or web address] 09:16 AM Alla Zhao RN Position: Assembler Erector Time in: :16 [email or web address] 09:16 AM Андрей Strickland RN Position: Nurse Time in: :[facility] AM Enedelia Culver RT (R) Position: Scrub orientee Time in: 09:16 [email or web address] 09:17 AM Patient charges- Angio tray pack, Navilyst 3mm J, Pulse Oximetry and ACIST tubing and transducer : Hair removed from procedure site in holding area using clippers. Bilateral groin prepped with Chloraprep by Андрей Strickland RN, then patient was draped. Skin intact. : Physician arrived :count includes the [facility] : Meet and greet completed : Sign in performed according to hospital policy. Informed consent was obtained. Procedure start :[facility] Time: :19 Patient comfortable and pain free: Yes Time: LOC: 5 = Fully awake and oriented or at pre-proc level count includes the [facility] Time: : Oxygen on at 2 L/min per nasal cannula by Alla Zhao RN [facility] : Vitals capture started with the following parameters, Patient=Adult, Interval=5 min, Initial Uxhoqrze=938 mmHg, Deflation Rate=5 mmHg, Cuff placed on Left Arm 09:22 AM HR=73 bpm, AJRZ=341/81 mmhg, SpO2=95.0 %, Comment=nsr : AM Time: :23 Versed 2 mg Intravenous Given by Alla Zhao RN [facility] : AM Time: : Fentanyl 50 mcg Intravenous Given by Alla Zhao RN [facility] :26 AM HR=74 bpm, YCTF=675/85 mmhg, SpO2=96.0 %, Resp=17 B/min, Comment=nsr 09:32 AM HR=76 bpm, WYXI=470/75 mmhg, SpO2=95.0 %, Resp=16 B/min, Comment=ETCO2 28. SR on monitor 09:36 AM HR=77 bpm, XLFV=835/84 mmhg, SpO2=92.0 %, Resp=6 B/min, Comment=ETCO2 28. SR on monitor :37 AM Time: :LOC: 4 = Oriented but drowsy the [facility]:37 AM Time: 09:19 Patient comfortable and pain free: Yes :38 AM Hair removed from procedure site in procedure lab using clippers. Right wrist prepped with Chloraprep by Андрей Strickland RN, then patient was draped. Skin intact. [email or web address] 09:41 AM ASA Class CLASS II- Mild systemic disease (i.e. well-controlled diabetes, hypertension, asthma, cigarette smoking) [email or web address] 09:41 AM Time out was performed according to hospital policy. Conscious sedation and anesthesia was achieved (see medication log with in this report above) [email or web address] 09:41 AM HR=70 bpm, NDBB=760/86 mmhg, SpO2=90.0 %, Resp=18 B/min, EtCO2=20 mmHg, Comment=ETCO2 28. SR on monitor 09:42 AM Time: 09:41 1 ml Lidocaine 2% to left radial Subcutaneous Given by Enedelia Reid MD, [facility] [email or web address] 09:43 AM Pressure channel 1 zeroed. 09:44 AM Pressure channel 1 zeroed. 09:45 AM Access obtained by percutaneous puncture. 5/6Fr 10cm Terumo Glidesheath sheath placed in left Radial artery. [id number] [email or web address] 09:45 AM Time: 09:45 Patient given 4,000 units Heparin, 200 mcg Nitroglycerin, and 2.5 mg Verapamil Intraarterial by Enedelia Reid MD, [facility]. This is given to reduce risk of vessel spasm and thrombosis. [email or web address] 09:46 AM HR=78 bpm, SJUQ=402/78 mmhg, SpO2=93.0 %, Resp=27 B/min, EtCO2=32 mmHg, Comment=sr 09:47 AM Clinical Presentation: Non-STEMI [email or web address] 09:47 AM Pressure channel 1 zeroed. 09:51 AM 5Fr FR 4 catheter inserted over the wire [facility] jcallihan 09:51 AM RCA angiography performed in multiple views. [email or web address] 09:51 AM Recorded Pressure: Ao, HR=81, Condition=Condition 1 (Aorta) Ao 86/40/63 09:51 AM HR=74 bpm, TRQT=010/70 mmhg, SpO2=96.0 %, Comment=sr 09:52 AM Time: 09:37 Patient comfortable and pain free: Yes [email or web address] 09:52 AM Time: 09:37LOC: 4 = Oriented but drowsy [email or web address] 09:52 AM Catheter removed [email or web address] 09:53 AM Pressure channel 1 zeroed. 09:55 AM 5Fr FL3.5 catheter inserted over the wire [id number] [email or web address] 09:55 AM LCA angiography performed in multiple views. [email or web address] 09:56 AM HR=75 bpm, HKXQ=221/77 mmhg, SpO2=93.0 %, Comment=sr 09:58 AM Recorded Pressure: LV, FK=392, Condition=Condition 1 (Left Ventricle) LV 122/17/32 09:58 AM Catheter removed [email or web address] 09:59 AM Recorded Pressure: LV, Ao, CY=731, Condition=Condition 1 (Left Ventricle) LV 113/62/99, (Aorta) Ao 117/66/90 10:00 AM 5Fr Pigtail catheter inserted over the wire [facility] jcallihan 10:00 AM Catheter crossed the aortic valve and was selectively placed in the left ventricle. Pressures recorded on pullback for left heart catheterization. [email or web address] 10:01 AM Bolus angiogram of left Ventricle complete: 8 ml/sec for a total of 24 mls [email or web address] 10:01 AM Catheter removed [email or web address] 10:01 AM HR=71 bpm, ZMFI=517/75 mmhg, SpO2=96.0 %, Resp=9 B/min, Comment=sr 10:02 AM Procedure completed at 10:02 03/09/2019 [email or web address] 10:04 AM Sign out completed: Radiation Dose 191.90 mGy, 32.1 Gy/cm2 Fluoro Time: 4.9 Isovue 370 - 200ml contrast 84 ml given by Enedelia Reid MD, [facility]. Complications: None. 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 Sedation minutes 40. Cardiac Rehab Consult needed: No. Confirmed administered medications: Yes [email or web address] 10:04 AM Isovue 370 - 200ml,1 Bottle(s) used. [email or web address] 10:06 AM Did you address STEWART flow and Dominance? YesCoronary Dominance: right [email or web address] 10:07 AM Time: 09:52 Patient comfortable and pain free: Yes [email or web address] 10:07 AM Arterial sheath pulled, Vasc Band closure device used and was Successful S/N. [email or web address] 10:07 AM 10 ml air in Vasc Band. [email or web address] 10:07 AM Estimated Blood Loss: less than 20cc [email or web address] 10:07 AM Post ECG NSR [email or web address] 10:07 AM Time: 09:52LOC: 4 = Oriented but drowsy [email or web address] 10:07 AM 10:07 Post Pulses Bilateral DP & PT 2+ [email or web address] 10:07 AM 10:07 Post Pulses Lt Radial 1+ [email or web address] 10:08 AM Post Blood Pressure 151/70 [email or web address] 10:08 AM Information taught Cardiac Cath and Vasc Band [email or web address] 10:08 AM Education needs Procedure, Plan of Care, and Responsibilities of Patient in Care [email or web address] 10:08 AM Learning barriers :None [email or web address] 10:08 AM Education Methods Verbal [email or web address] 10:08 AM Education evaluation Able to repeat information [email or web address] 10:08 AM Site status No bleeding/hematoma - Lt Wrist as reported by Sites, [place] RT (R) at 10:08 [email or web address] 10:09 AM Report given to 2A RN Pt taken to 2A Room #39. 10:08 [email or web address] 10:09 AM Plavix, Effient or Brilinta given No [email or web address] 10:09 AM Family placed in consult room. [email or web address] 10:09 AM Complications: None [email or web address] 10:13 AM Patient out of room: 10:13 [email or web address] 10:14 AM Lesion found in Proximal RCA. Pre Stenosis: 40 Pre STEWART Flow: [email or web address] 10:14 AM Lesion found in Mid RCA. Pre Stenosis: 50 Pre STEWART Flow: [email or web address] 10:14 AM Lesion found in Distal RCA. Pre Stenosis: 30 Pre STEWART Flow: [email or web address] 10:14 AM Lesion found in Proximal LAD. Pre Stenosis: 50 Pre STEWART Flow: [email or web address] 10:15 AM Lesion found in Mid LAD. Pre Stenosis: 30 Pre STEWART Flow: [email or web address] 10:15 AM Lesion found in Distal LAD. Pre Stenosis: 30 Pre STEWART Flow: [email or web address] 10:15 AM Lesion found in 1st Diagonal. Pre Stenosis: 60 Pre STEWART Flow: [email or web address] 10:15 AM Lesion found in Proximal Circumflex. Pre Stenosis: 100 Pre STEWART Flow: [email or web address] 10:16 AM Lesion found in RPAV. Pre Stenosis: 60 Pre STEWART Flow: [email or web address] 10:16 AM Right Coronary, Right Posterior Descending Arteries with Right Posterolateral and Acute Marginal branches with 60 % stenosis. If graft is supplying this area, 0 % stenosis [email or web address] 10:16 AM Proximal Left Anterior Descending Coronary Artery with 50% stenosis. If graft is supplying this territory, 0 % stenosis. [email or web address] 10:17 AM Mid/Distal Left Anterior Descending Coronary Artery and diagonal branches with 60% stenosis. If graft is supplying this area, 0 % stenosis [email or web address] 10:17 AM Circumflex, Obtuse Marginal, Left Posterior Descending, and Left Posterolateral Coronary Arteries with 100 % stenosis. If graft is supplying this area, 0 % stenosis [email or web address] 10:20 AM Lesion found in Distal LMCA. Pre Stenosis: 30 Pre STEWART Flow: [email or web address] 10:20 AM Left Main Coronary Artery with 30% stenosis [email or web address] 10:22 AM Time: 10:07 Patient comfortable and pain free: Yes [email or web address] Complications Complication None None Hemodynamics Pressures Site Systolic/A Wave Diastolic/V Wave Mean AO 86 40 63 LV 122 17 32 LV 113 62 99 AO 117 66 90 Post Procedure Information Blood Pressure: 151/70 mmHg Rhythm: NSR Post procedural instructions were given Closure Device Time Device Success/Fail 03/09/2019 10:05:00 AM Mechanical Compression Successful Site Checks Time Location Status Staff Sheath In? Note 10:08 AM Lt Wrist No bleeding/hematoma Sites, [place] RT (R) Pulses Time Site Pre-Procedure Post-Procedure Note Bilateral DP & PT 2+ Bilateral radial 2+ 10:07:00 AM Bilateral DP & PT 2+ 10:07:00 AM Lt Radial 1+ Updated by Angel Cobos RN on 03/09/2019 10:23:17 AM electronically signed on 03/09/2019 10:24:12 AM with status of Final
[2019-03-09 11:24] VITALS: BP 152/71
--- NOTE | 2019-03-09 11:44 | Discharge Summary ---
- NOTES TO OUTPATIENT PROVIDER Notes to Outpatient Provider: Follow up with PCP with repeat BMP in 5 days. Follow up with Cardiology Date of Encounter: 03/09/19 Time of Encounter: 09:45 - Discharge Diagnosis (1) NSTEMI (non-ST elevated myocardial infarction) Priority: Primary Status: Acute (2) Cough Priority: Secondary Status: Acute (3) Hypertension Priority: Secondary Status: Chronic Qualifiers: Hypertension type: essential hypertension Qualified Code(s): I10 - Essential (primary) hypertension (4) Hyperlipidemia Priority: Secondary Status: Chronic Qualifiers: Hyperlipidemia type: unspecified Qualified Code(s): E78.5 - Hyperlipidemia, unspecified (5) DVT prophylaxis Priority: Secondary Status: Acute Hospital course: Mr. Zuniga is a 78 year old male with history of hypertension, HLD, GERD, ex- tobacco use, who was admitted for NSTEMI and presumably COPD exacerbation. CXR without consolidation. Trop 0.36 and downtrended with Q waves in lead 3 and avf. 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 He was given ASA, bb, and plavix/Imdur were added by Cardiology. He will be discharged home on a total of 5 days of PO Prednisone and PRN Albuterol with outpatient PFT. He was also advised to consider CT chest if symptoms persist after the course of steroid. Discharge discussed with: patient, family, nurse, wine consultant - Time Spent with Patient Total time spent providing and/or coordinating discharge services: 32 mins - Discharge Medications Prescriptions: New Aspirin Enteric Coated [Aspirin EC] 81 mg PO DAILY #30 tablet. Isosorbide MONOnitrate (24 HR) [Imdur] 30 mg PO DAILY #30 tab.er.24h Metoprolol [Lopressor] 12.5 mg PO BID #60 tablet GuaiFENesin ER [Mucinex] 600 mg PO BID PRN #30 tbbp.12hr PRN Reason: Congestion Clopidogrel [Plavix] 75 mg PO DAILY #30 tablet predniSONE [PredniSONE] 40 mg PO DAILY 3 Days #6 tablet Albuterol Sulfate [Albuterol Inhaler] 1 puff IH Q4H PRN #1 inhaler PRN Reason: Shortness Of Breath Continued Atenolol/Chlorthalidone [Tenoretic 100 Tablet] 1 tab PO DAILY Doxazosin Mesylate [Cardura] 2 mg PO BID Fexofenadine HCl 180 mg PO DAILY Fluticasone Propionate Nasal [Flonase] 1 - 2 spray NS DAILY PRN PRN Reason: Allergy Symptoms Multivit-Min/FA/Lycopen/Lutein [Centrum Silver Tablet] 1 tab PO DAILY Naproxen Sodium [Aleve] 220 mg PO DAILY Omeprazole [PriLOSEC] 40 mg PO DAILY Simvastatin [Zocor] 10 mg PO DAILY Home Medications: Albuterol Sulfate [Albuterol Inhaler] 1 puff IH Q4H PRN #1 inhaler 03/09/19 [Rx] Aspirin Enteric Coated [Aspirin EC] 81 mg PO DAILY #30 tablet. 03/09/19 [Rx] Atenolol/Chlorthalidone [Tenoretic 100 Tablet] 1 tab PO DAILY 03/09/19 [History] Clopidogrel [Plavix] 75 mg PO DAILY #30 tablet 03/09/19 [Rx] Doxazosin Mesylate [Cardura] 2 mg PO BID 03/09/19 [History] Fexofenadine HCl 180 mg PO DAILY 03/09/19 [History] Fluticasone Propionate Nasal [Flonase] 1 - 2 spray NS DAILY PRN 03/09/19 [History] GuaiFENesin ER [Mucinex] 600 mg PO BID PRN #30 tbbp.12hr 03/09/19 [Rx] Isosorbide MONOnitrate (24 HR) [Imdur] 30 mg PO DAILY #30 tab.er.24h 03/09/19 [Rx] Metoprolol [Lopressor] 12.5 mg PO BID #60 tablet 03/09/19 [Rx] Multivit-Min/FA/Lycopen/Lutein [Centrum Silver Tablet] 1 tab PO DAILY 03/09/19 [History] Naproxen Sodium [Aleve] 220 mg PO DAILY 03/09/19 [History] Omeprazole [PriLOSEC] 40 mg PO DAILY 03/09/19 [History] Simvastatin [Zocor] 10 mg PO DAILY 03/09/19 [History] predniSONE [PredniSONE] 40 mg PO DAILY 3 Days #6 tablet 03/09/19 [Rx] Allergies/Adverse Reactions: Allergy/AdvReac Type Severity Reaction Status Date / Time No Known Allergies Allergy Verified 03/09/19 08:41 Date of admission: 03/07/19 14:14 Primary care physician: Kd Rod MD Consults: 03/07/19 12:29 Consult to Cardiology [CONS] Stat Comment: Consulting Provider: Cardiology Suad Reason for Consult: elevated troponin, chest pain Call Completed: Yes - Constitutional Vitals: Temp Pulse Resp BP Pulse Ox 98.9 F 78 18 152/71 93 03/09/19 11:33 03/09/19 11:33 03/09/19 11:33 03/09/19 11:33 03/09/19 11:33 Exam: General: Alert and oriented, not in acute distress. Cardiovascular:Normal S1 & S2, No JVD. Pulse regular. Lungs: Minimal wheezes at the left lung base Abdomen:Soft, non-tender, no rebound/guarding/rigidity. Extremities: L wrist without hematoma Neurological:Normal cognition and motor skills. Non-focal - Patient Status Disposition: Home, Self-Care Condition: Undetermined Functional capacity at discharge: independent ambulation Overall status at discharge: patient is progressing back to baseline - Discharge Instructions Instructions: Chronic Hypertension (DC) Follow Up With: Kd Rod MD [Primary Care Provider] - Enedelia Reid MD [Partnered Physician] - Additional Instructions: Complete a course of steroid. Continue PRN Albuterol Follow up with PCP with repeat BMP in 5 days for hyponatremia and hypokalemia. Outpatient PFT, consider CT chest outpatient as well if he remains symptomatic Follow up with Cardiology - Diet and Activity Activity: resume usual activities as tolerated Diet: low salt diet
== END 2019-03-09 13:00 | disposition home or self-care (01) | DRG 281 ==
LOC: 2ANU 09:37 → EMEROOARM 09:37 → SUATTDRO 13:35 → 2ANU 15:51
PROVIDERS: ADMIT Internal Medicine Nephrology; ATTEND Internal Medicine

== ENCOUNTER 2019-05-12 14:48 | Inpatient (IN) ==
[2019-05-12 16:42] LABS: Basophils % 0.5 %; Eosinophils # 0.3 K/mcL (0.0-0.6); Eosinophils % 4.9 %; Hematocrit 43.9 % (37.5-50.1); Hemoglobin 14.4 g/dL (12.9-16.9); Immature Granulocytes % 0.3 % (0-4); Lymphocytes # 1.3 K/mcL (0.6-4.6); Lymphocytes % 21.1 %; Mean Corpuscular HGB Conc 32.8 g/dL (31.6-35.5); Mean Corpuscular Hemoglobin 30.6 pg (28.0-33.3); Mean Corpuscular Volume 93.4 fL (83.0-100.0); Mean Platelet Volume 10.9 fL (9.4-12.4); Monocytes # 0.7 K/mcL (0.0-1.3); Monocytes % 12.3 %; Neutrophils # 3.6 K/mcL (1.6-8.9); Platelet Count 139 K/mcL (140-400); Red Cell Distribution Width 12.8 % (11.5-14.5); Segmented Neutrophils % 60.9 %; White Blood Count 5.9 K/mcL (4.3-11.1)
[2019-05-12 17:03] LABS: BUN/Creatinine Ratio 15 (6-26); Blood Urea Nitrogen 12 mg/dL (8-23); Calcium 9.3 mg/dL (8.6-10.3); Carbon Dioxide 30 mEq/L (23-29); Chloride 96 mEq/L (98-107); Glucose 109 mg/dL (70-105); Osmolality,Calculated 278 (280-300); Sodium 134 mEq/L (136-145); eGFR For African Americans > 60 (> 60); eGFR For Non-African Americans > 60 (> 60)
[2019-05-12] MEDS ORDERED: Ibuprofen 600 MG TABLET PO ONE (17:07)
[2019-05-12] MEDS ORDERED: predniSONE 20 MG TABLET PO ONE (17:07)
[2019-05-12] MEDS ORDERED: Ipratropium/Albuterol Neb 3 ML IH ONE (17:08)
[2019-05-12 17:13] LABS: Troponin I 0.26 ng/mL (< 0.04)
[2019-05-12] MEDS ORDERED: *HR* Heparin 5,000 UNIT/ML VIAL IVP ONE (17:32)
[2019-05-12] MEDS ORDERED: *HR* Heparin 5,000 UNIT/ML VIAL IVP PRN ×2 (17:32)
[2019-05-12] MEDS ORDERED: Aspirin 81 MG TAB.CHEW PO ONE (17:32)
[2019-05-12] MEDS ORDERED: Heparin 25,000 UNIT/250 ML D5W 25,000 UNIT/250 ML IV.SOLN IVC SCH (17:45)
[2019-05-12] MEDS ORDERED: Naloxone 0.4 MG/ML INJ IVP PRN (17:55)
[2019-05-12 18:08] LABS: Heparin anti-factor XA UFH 0.01 IU/mL (0.30-0.70); Prothrombin Time 11.2 Seconds (9.4-12.1)
[2019-05-12 18:43] LABS: Activated Partial Thrombo Time 30.5 Seconds (26.0-36.0)
[2019-05-12] MEDS ORDERED: Ipratropium/Albuterol Neb 3 ML IH PRN (19:39)
[2019-05-12] MEDS: Benzonatate 100 MG CAPSULE PO PRN (23:02)
[2019-05-13 00:26] LABS: Hematocrit 45.5 % (37.5-50.1); Hemoglobin 15.5 g/dL (12.9-16.9); Mean Corpuscular HGB Conc 34.1 g/dL (31.6-35.5); Mean Corpuscular Hemoglobin 31.4 pg (28.0-33.3); Mean Corpuscular Volume 92.1 fL (83.0-100.0); Mean Platelet Volume 10.8 fL (9.4-12.4); Platelet Count 138 K/mcL (140-400); Red Blood Count 4.94 M/mcL (4.19-5.50); Red Cell Distribution Width 12.9 % (11.5-14.5)
[2019-05-13 02:42] LABS: Basophils % 0.1 %; Eosinophils % 0.4 %; Hematocrit 47.4 % (37.5-50.1); Hemoglobin 15.9 g/dL (12.9-16.9); Immature Granulocytes % 0.4 % (0-4); Lymphocytes # 0.7 K/mcL (0.6-4.6); Mean Corpuscular HGB Conc 33.5 g/dL (31.6-35.5); Mean Corpuscular Hemoglobin 30.6 pg (28.0-33.3); Mean Corpuscular Volume 91.3 fL (83.0-100.0); Mean Platelet Volume 11.1 fL (9.4-12.4); Monocytes # 0.1 K/mcL (0.0-1.3); Monocytes % 1.8 %; Neutrophils # 6.4 K/mcL (1.6-8.9); Platelet Count 140 K/mcL (140-400); Red Blood Count 5.19 M/mcL (4.19-5.50); Red Cell Distribution Width 12.9 % (11.5-14.5); Segmented Neutrophils % 87.3 %; White Blood Count 7.4 K/mcL (4.3-11.1)
[2019-05-13 03:12] LABS: BUN/Creatinine Ratio 16 (6-26); Blood Urea Nitrogen 12 mg/dL (8-23); Calcium 9.7 mg/dL (8.6-10.3); Carbon Dioxide 25 mEq/L (23-29); Chloride 96 mEq/L (98-107); Glucose 152 mg/dL (70-105); Osmolality,Calculated 277 (280-300); Sodium 132 mEq/L (136-145); Troponin I 0.26 ng/mL (< 0.04); eGFR For African Americans > 60 (> 60); eGFR For Non-African Americans > 60 (> 60)
[2019-05-13] MEDS ORDERED: Furosemide 20 MG/2 ML VIAL IVP ONE (08:40)
[2019-05-13] MEDS: Aspirin Enteric Coated 81 MG Tablet PO SCH (08:57)
[2019-05-13] MEDS ORDERED: Isosorbide MONOnitrate (24 HR) 30 MG TAB.ER.24H PO SCH (09:00)
[2019-05-13] MEDS ORDERED: Oxymetazoline Nasal SPRAY BOTTLE NS PRN (11:24)
[2019-05-13] MEDS: Benzonatate 100 MG CAPSULE PO PRN (15:31)
[2019-05-13] MEDS: *HR* Heparin 5,000 UNIT/ML VIAL SQ SCH (16:57)
[2019-05-14] MEDS: *HR* Heparin 5,000 UNIT/ML VIAL SQ SCH (06:10)
[2019-05-14] MEDS ORDERED: Regadenoson 0.4 MG/5 ML SYRINGE IVP ONE (06:30)
[2019-05-14] MEDS ORDERED: Fluticasone Propionate Nasal 50 MCG/SPRAY BOTTLE NS SCH (09:00)
[2019-05-14] MEDS ORDERED: Isosorbide MONOnitrate (24 HR) 60 MG TAB.ER.24H PO SCH (10:30)
[2019-05-14 10:32] VITALS: BP 170/85
[2019-05-14] MEDS: Aspirin Enteric Coated 81 MG Tablet PO SCH (10:33)
[2019-05-14] MEDS: Benzonatate 100 MG CAPSULE PO PRN (10:56)
== END 2019-05-14 13:16 | disposition home or self-care (01) | DRG 282 ==
LOC: 2NENU 14:48 → EMEROOARM 14:48 → SUATTDRO 18:11 → 2NENU 19:40
PROVIDERS: ADMIT Student in an Organized Health Care Education/Training Program; ATTEND Internal Medicine

== ENCOUNTER 2019-12-23 09:28 | Observation (INO) ==
[2019-12-23 10:36] LABS: Basophils % 0.4 %; Eosinophils # 0.1 K/mcL (0.0-0.6); Eosinophils % 1.4 %; Hemoglobin 14.9 g/dL (12.9-16.9); Immature Granulocytes % 0.2 % (0-4); Lymphocytes # 0.7 K/mcL (0.6-4.6); Lymphocytes % 14.5 %; Mean Corpuscular HGB Conc 32.4 g/dL (31.6-35.5); Mean Corpuscular Hemoglobin 30.7 pg (28.0-33.3); Mean Corpuscular Volume 94.8 fL (83.0-100.0); Mean Platelet Volume 11.3 fL (9.4-12.4); Monocytes # 0.9 K/mcL (0.0-1.3); Monocytes % 17.2 %; Neutrophils # 3.4 K/mcL (1.6-8.9); Platelet Count 135 K/mcL (140-400); Red Blood Count 4.85 M/mcL (4.19-5.50); Red Cell Distribution Width 12.8 % (11.5-14.5); Segmented Neutrophils % 66.3 %; White Blood Count 5.1 K/mcL (4.3-11.1)
[2019-12-23] MEDS ORDERED: Isovue-370 500 ML BOTTLE IVP ONE ×2 (10:41→11:22)
[2019-12-23] MEDS ORDERED: 0.9 % Sodium Chloride 1,000 ML IV ONE (10:41)
[2019-12-23 10:51] LABS: BUN/Creatinine Ratio 19 (6-26); Blood Urea Nitrogen 15 mg/dL (8-23); Calcium 8.7 mg/dL (8.6-10.3); Carbon Dioxide 29 mEq/L (23-29); Chloride 100 mEq/L (98-107); Glucose 95 mg/dL (70-105); Osmolality,Calculated 281 (280-300); Potassium 3.6 mEq/L (3.5-5.1); Sodium 135 mEq/L (136-145); eGFR For African Americans > 60 (> 60); eGFR For Non-African Americans > 60 (> 60)
[2019-12-23 11:00] LABS: Alanine Aminotransferase 24 Units/L (7-52); Albumin 4.2 g/dL (3.5-5.7); Albumin/Globulin Ratio 1.9 (1.1-2.2); Alkaline Phosphatase 43 Units/L (34-104); Aspartate Amino Transferase 37 Units/L (13-39); Bilirubin,Direct 0.2 mg/dL (0.0-0.2); Bilirubin,Indirect 0.2 mg/dL (0.0-1.0); Bilirubin,Total 0.4 mg/dL (0.3-1.0); Globulin 2.2 g/dL (2.4-3.5); Total Protein 6.4 g/dL (6.4-8.9)
[2019-12-23] MEDS ORDERED: Naloxone 0.4 MG/ML INJ IVP PRN (17:52)
[2019-12-23] MEDS ORDERED: Ondansetron 4 MG/2 ML VIAL IVP PRN (17:52)
[2019-12-23] MEDS ORDERED: Fluticasone Propionate Nasal 50 MCG/SPRAY BOTTLE NS PRN (18:07)
[2019-12-24 06:10] LABS: Immature Granulocytes % 0.2 % (0-4); Red Blood Count 4.81 M/mcL (4.19-5.50)
[2019-12-24 06:12] LABS: Basophils % 0.6 %; Eosinophils # 0.1 K/mcL (0.0-0.6); Eosinophils % 2.2 %; Hematocrit 45.7 % (37.5-50.1); Hemoglobin 15.1 g/dL (12.9-16.9); Immature Platelets 6.9 % (1.1-6.1); Lymphocytes % 17.6 %; Mean Corpuscular Hemoglobin 31.4 pg (28.0-33.3); Mean Platelet Volume 11.2 fL (9.4-12.4); Monocytes # 0.8 K/mcL (0.0-1.3); Monocytes % 14.6 %; Neutrophils # 3.5 K/mcL (1.6-8.9); Platelet Count 133 K/mcL (140-400); Red Cell Distribution Width 12.8 % (11.5-14.5); Segmented Neutrophils % 64.8 %; White Blood Count 5.4 K/mcL (4.3-11.1)
[2019-12-24 06:27] LABS: BUN/Creatinine Ratio 17 (6-26); Blood Urea Nitrogen 14 mg/dL (8-23); Carbon Dioxide 28 mEq/L (23-29); Chloride 102 mEq/L (98-107); Glucose 91 mg/dL (70-105); Osmolality,Calculated 284 (280-300); Potassium 3.7 mEq/L (3.5-5.1); Sodium 137 mEq/L (136-145); eGFR For African Americans > 60 (> 60); eGFR For Non-African Americans > 60 (> 60)
[2019-12-24 06:42] LABS: Platelet Estimate Decreased (Normal)
[2019-12-24] MEDS ORDERED: Lidocaine -MPF 2% 2 ML VIAL ONE (08:05)
[2019-12-24] MEDS ORDERED: *HR* Propofol 200 MG/20 ML VIAL IVP ONE (08:05)
[2019-12-24 14:03] VITALS: BP 166/76
[2019-12-24 15:05] LABS: Hematocrit 47.7 % (37.5-50.1); Hemoglobin 15.6 g/dL (12.9-16.9)
[2019-12-24] MEDS ORDERED: Sucralfate 1 GM TABLET PO SCH (16:30)
== END 2019-12-24 18:00 | disposition home or self-care (01) ==
LOC: 3ANU 09:28 → EMEROOARM 09:28 → SUATTDRO 17:34 → 3ANU 18:23
PROVIDERS: ADMIT Family Medicine; ATTEND Internal Medicine

== ENCOUNTER 2020-12-12 18:58 | Inpatient (IN) ==
[2020-12-12] MEDS ORDERED: Aspirin 81 MG TAB.CHEW PO ONE (19:19)
[2020-12-12 19:51] LABS: Basophils # 0.1 K/mcL (0.0-0.2); Basophils % 0.6 %; Eosinophils # 0.1 K/mcL (0.0-0.6); Eosinophils % 1.8 %; Hematocrit 47.1 % (37.5-50.1); Hemoglobin 15.3 g/dL (12.9-16.9); Immature Granulocytes % 0.4 % (0-4); Lymphocytes # 1.7 K/mcL (0.6-4.6); Lymphocytes % 21.3 %; Mean Corpuscular HGB Conc 32.5 g/dL (31.6-35.5); Mean Corpuscular Hemoglobin 30.4 pg (28.0-33.3); Mean Corpuscular Volume 93.5 fL (83.0-100.0); Mean Platelet Volume 10.9 fL (9.4-12.4); Monocytes # 0.9 K/mcL (0.0-1.3); Monocytes % 11.8 %; Platelet Count 149 K/mcL (140-400); Red Blood Count 5.04 M/mcL (4.19-5.50); Red Cell Distribution Width 13.2 % (11.5-14.5); Segmented Neutrophils % 64.1 %; White Blood Count 7.9 K/mcL (4.3-11.1)
[2020-12-12 19:58] LABS: Prothrombin Time 11.6 Seconds (9.4-12.1)
[2020-12-12 20:01] LABS: Activated Partial Thrombo Time 27.8 Seconds (26.0-36.0)
[2020-12-12 20:35] LABS: Alanine Aminotransferase 35 Units/L (7-52); Albumin 4.4 g/dL (3.5-5.7); Albumin/Globulin Ratio 1.8 (1.1-2.2); Alkaline Phosphatase 60 Units/L (34-104); Aspartate Amino Transferase 47 Units/L (13-39); BUN/Creatinine Ratio 10 (6-26); Bilirubin,Total 0.5 mg/dL (0.3-1.0); Blood Urea Nitrogen 9 mg/dL (8-23); Calcium 9.4 mg/dL (8.6-10.3); Carbon Dioxide 29 mEq/L (23-29); Chloride 102 mEq/L (98-107); Globulin 2.4 g/dL (2.4-3.5); Glucose 112 mg/dL (70-105); Lipase 43 Units/L (11-82); Osmolality,Calculated 285 (280-300); Potassium 3.7 mEq/L (3.5-5.1); Sodium 138 mEq/L (136-145); Total Protein 6.8 g/dL (6.4-8.9); Troponin I 0.08 ng/mL (< 0.04); eGFR For African Americans > 60 (> 60); eGFR For Non-African Americans > 60 (> 60)
[2020-12-12] MEDS ORDERED: Nitroglycerin 0.4 MG TAB.SUBL SL PRN (22:14)
[2020-12-12] MEDS ORDERED: Perflutren Lipid Microsphere 1.3 ML in 0.9 % Sodium Chloride 8.7 ML IVP PRN (22:15)
[2020-12-12] MEDS ORDERED: Naloxone 0.4 MG/ML INJ IVP PRN (22:19)
[2020-12-12] MEDS ORDERED: *HR* Metoprolol 5 MG/5 ML VIAL IVP ONE (23:18)
[2020-12-13 00:38] LABS: Basophils % 0.4 %; Eosinophils # 0.1 K/mcL (0.0-0.6); Eosinophils % 1.3 %; Hematocrit 45.6 % (37.5-50.1); Hemoglobin 15.1 g/dL (12.9-16.9); Immature Granulocytes % 0.3 % (0-4); Lymphocytes # 1.7 K/mcL (0.6-4.6); Lymphocytes % 23.7 %; Mean Corpuscular HGB Conc 33.1 g/dL (31.6-35.5); Mean Corpuscular Hemoglobin 31.2 pg (28.0-33.3); Mean Corpuscular Volume 94.2 fL (83.0-100.0); Mean Platelet Volume 11.1 fL (9.4-12.4); Monocytes # 0.7 K/mcL (0.0-1.3); Monocytes % 10.1 %; Neutrophils # 4.5 K/mcL (1.6-8.9); Platelet Count 143 K/mcL (140-400); Red Blood Count 4.84 M/mcL (4.19-5.50); Red Cell Distribution Width 13.2 % (11.5-14.5); Segmented Neutrophils % 64.2 %
[2020-12-13 00:52] LABS: Alanine Aminotransferase 33 Units/L (7-52); Albumin 4.2 g/dL (3.5-5.7); Albumin/Globulin Ratio 1.9 (1.1-2.2); Alkaline Phosphatase 51 Units/L (34-104); Aspartate Amino Transferase 45 Units/L (13-39); BUN/Creatinine Ratio 10 (6-26); Bilirubin,Total 0.6 mg/dL (0.3-1.0); Blood Urea Nitrogen 9 mg/dL (8-23); Calcium 9.1 mg/dL (8.6-10.3); Carbon Dioxide 26 mEq/L (23-29); Chloride 103 mEq/L (98-107); Chol/HDL Ratio 2.3 (0-4.9); Globulin 2.2 g/dL (2.4-3.5); Glucose 116 mg/dL (70-105); Osmolality,Calculated 282 (280-300); Potassium 3.8 mEq/L (3.5-5.1); Sodium 136 mEq/L (136-145); Total Protein 6.4 g/dL (6.4-8.9); eGFR For African Americans > 60 (> 60); eGFR For Non-African Americans > 60 (> 60)
[2020-12-13] MEDS ORDERED: *HR* Heparin 5,000 UNIT/ML VIAL SQ SCH (06:00)
[2020-12-13] MEDS ORDERED: Regadenoson 0.4 MG/5 ML SYRINGE IVP ONE (06:17)
[2020-12-13] MEDS ORDERED: GI Cocktail 40 ML EACH PO ONE (09:27)
[2020-12-13] MEDS: Isosorbide MONOnitrate (24 HR) 60 MG TAB.ER.24H PO SCH (10:23)
[2020-12-13] MEDS: Aspirin Enteric Coated 81 MG Tablet PO SCH (10:23)
[2020-12-13] MEDS ORDERED: *HR* Heparin 5,000 UNIT/ML VIAL IVP ONE (13:45)
[2020-12-13] MEDS ORDERED: *HR* Heparin 5,000 UNIT/ML VIAL IVP PRN ×2 (13:45)
[2020-12-13 14:36] LABS: Hematocrit 47.3 % (37.5-50.1); Hemoglobin 15.8 g/dL (12.9-16.9); Mean Corpuscular HGB Conc 33.4 g/dL (31.6-35.5); Mean Corpuscular Hemoglobin 31.2 pg (28.0-33.3); Mean Corpuscular Volume 93.5 fL (83.0-100.0); Mean Platelet Volume 11.1 fL (9.4-12.4); Platelet Count 149 K/mcL (140-400); Red Blood Count 5.06 M/mcL (4.19-5.50); Red Cell Distribution Width 13.2 % (11.5-14.5); White Blood Count 7.8 K/mcL (4.3-11.1)
[2020-12-13 14:47] LABS: Heparin anti-factor XA UFH < 0.04 IU/mL (0.30-0.70); INR 1.1; Prothrombin Time 12.7 Seconds (9.4-12.1)
[2020-12-13] MEDS ORDERED: *HR* Midazolam HCl 2 MG/2 ML VIAL ONE (15:21)
[2020-12-13] MEDS ORDERED: *HR* FentaNYL (PF) 100 MCG/2 ML VIAL ONE (15:21)
[2020-12-13] MEDS ORDERED: Nitroglycerin Spray 4.9 GM BOTTLE ONE (15:43)
[2020-12-13] MEDS: Heparin 25,000UNIT/250ML 1/2NS 25,000 UNIT/250 ML IV.SOLN IVC SCH (18:20)
[2020-12-14] MEDS: Aspirin Enteric Coated 81 MG Tablet PO SCH (09:20)
[2020-12-14] MEDS: Isosorbide MONOnitrate (24 HR) 60 MG TAB.ER.24H PO SCH (09:20)
[2020-12-14 11:22] LABS: Estimated Average Glucose 146 mg/dl; Hemoglobin A1C 6.7 %
[2020-12-14] MEDS: Heparin 25,000UNIT/250ML 1/2NS 25,000 UNIT/250 ML IV.SOLN IVC SCH (18:21)
[2020-12-15 06:52] LABS: Hematocrit 45.4 % (37.5-50.1); Hemoglobin 14.9 g/dL (12.9-16.9)
[2020-12-15] MEDS: Aspirin Enteric Coated 81 MG Tablet PO SCH (07:44)
[2020-12-15] MEDS: Isosorbide MONOnitrate (24 HR) 60 MG TAB.ER.24H PO SCH (07:44)
[2020-12-15 08:53] LABS: Bilirubin,Urine Negative (Negative); Blood,Urine Negative (Negative); Clarity,Urine Clear (Clear); Color,Urine Light-Yellow (Yellow); Glucose,Urine (UA) Normal (Normal); Ketones,Urine Negative (Negative); Leukocyte Esterase,Urine Negative (Negative); Nitrite,Urine Negative (Negative); Protein,Urine Negative (Neg-Trace); Specific Gravity,Urine 1.012 (1.010-1.025); Urobilinogen,Urine Normal (Normal)
[2020-12-15] MEDS: Heparin 25,000UNIT/250ML 1/2NS 25,000 UNIT/250 ML IV.SOLN IVC SCH (20:26)
[2020-12-16 06:43] LABS: Hematocrit 46.4 % (37.5-50.1); Hemoglobin 15.2 g/dL (12.9-16.9)
[2020-12-16] MEDS: Isosorbide MONOnitrate (24 HR) 60 MG TAB.ER.24H PO SCH (07:30)
[2020-12-16] MEDS: Aspirin Enteric Coated 81 MG Tablet PO SCH (07:30)
[2020-12-16] MEDS: lisinopriL 10 MG TABLET PO SCH (09:59)
[2020-12-16] MEDS: Heparin 25,000UNIT/250ML 1/2NS 25,000 UNIT/250 ML IV.SOLN IVC SCH (23:08)
[2020-12-17 06:44] LABS: Hematocrit 47.8 % (37.5-50.1); Hemoglobin 15.4 g/dL (12.9-16.9)
[2020-12-17] MEDS: Aspirin Enteric Coated 81 MG Tablet PO SCH (07:27)
[2020-12-17] MEDS: Isosorbide MONOnitrate (24 HR) 60 MG TAB.ER.24H PO SCH (07:27)
[2020-12-17] MEDS: lisinopriL 10 MG TABLET PO SCH (07:27)
[2020-12-18] MEDS: Heparin 25,000UNIT/250ML 1/2NS 25,000 UNIT/250 ML IV.SOLN IVC SCH ×2 (01:12→10:34)
[2020-12-18] MEDS: Acetaminophen 325 MG TABLET PO PRN ×2 (05:05→15:27)
[2020-12-18 06:12] LABS: Basophils % 0.5 %; Eosinophils # 0.2 K/mcL (0.0-0.6); Eosinophils % 2.5 %; Hematocrit 44.1 % (37.5-50.1); Hemoglobin 14.8 g/dL (12.9-16.9); Immature Granulocytes % 0.7 % (0-4); Lymphocytes # 1.5 K/mcL (0.6-4.6); Lymphocytes % 19.8 %; Mean Corpuscular HGB Conc 33.6 g/dL (31.6-35.5); Mean Corpuscular Hemoglobin 31.3 pg (28.0-33.3); Mean Corpuscular Volume 93.2 fL (83.0-100.0); Mean Platelet Volume 11.1 fL (9.4-12.4); Monocytes # 0.6 K/mcL (0.0-1.3); Monocytes % 8.6 %; Platelet Count 142 K/mcL (140-400); Red Blood Count 4.73 M/mcL (4.19-5.50); Red Cell Distribution Width 13.2 % (11.5-14.5); Segmented Neutrophils % 67.9 %; White Blood Count 7.3 K/mcL (4.3-11.1)
[2020-12-18 06:14] LABS: Hematocrit 44.2 % (37.5-50.1); Hemoglobin 14.6 g/dL (12.9-16.9); Immature Platelets 7.4 % (1.1-6.1); Mean Corpuscular Hemoglobin 31.1 pg (28.0-33.3); Red Blood Count 4.7 M/mcL (4.19-5.50); White Blood Count 7.2 K/mcL (4.3-11.1)
[2020-12-18 06:26] LABS: Alanine Aminotransferase 52 Units/L (7-52); Albumin 4.2 g/dL (3.5-5.7); Alkaline Phosphatase 48 Units/L (34-104); Aspartate Amino Transferase 53 Units/L (13-39); BUN/Creatinine Ratio 15 (6-26); Bilirubin,Total 0.6 mg/dL (0.3-1.0); Blood Urea Nitrogen 11 mg/dL (8-23); Calcium 8.9 mg/dL (8.6-10.3); Carbon Dioxide 26 mEq/L (23-29); Chloride 101 mEq/L (98-107); Globulin 2.1 g/dL (2.4-3.5); Glucose 120 mg/dL (70-105); Osmolality,Calculated 281 (280-300); Potassium 3.8 mEq/L (3.5-5.1); Sodium 135 mEq/L (136-145); Total Protein 6.3 g/dL (6.4-8.9); eGFR For African Americans > 60 (> 60); eGFR For Non-African Americans > 60 (> 60)
[2020-12-18 06:27] LABS: BUN/Creatinine Ratio 15 (6-26); Blood Urea Nitrogen 11 mg/dL (8-23); Carbon Dioxide 25 mEq/L (23-29); Chloride 102 mEq/L (98-107); Glucose 118 mg/dL (70-105); Osmolality,Calculated 280 (280-300); Potassium 3.8 mEq/L (3.5-5.1); Sodium 135 mEq/L (136-145); eGFR For African Americans > 60 (> 60); eGFR For Non-African Americans > 60 (> 60)
[2020-12-18] MEDS: lisinopriL 10 MG TABLET PO SCH (07:37)
[2020-12-18] MEDS: Aspirin Enteric Coated 81 MG Tablet PO SCH (07:37)
[2020-12-18] MEDS: Isosorbide MONOnitrate (24 HR) 60 MG TAB.ER.24H PO SCH (07:37)
[2020-12-18] MEDS: Chlorhexidine Rinse 15 ML MOUTHWASH MM SCH (21:32)
[2020-12-18 23:33] LABS: Adenovirus Not Detected (Not Detect); Bordetella Pertussis Not Detected (Not Detect); Chlamydophila pneumoniae Not Detected (Not Detect); Coronavirus 229E Not Detected (Not Detect); Coronavirus HKU1 Not Detected (Not Detect); Coronavirus NL63 Not Detected (Not Detect); Coronavirus OC43 Not Detected (Not Detect); Human Metapneumovirus Not Detected (Not Detect); Human Rhinovirus/Enterovirus Not Detected (Not Detect); Influenza A Subtype 2009 H1 Not Detected (Not Detect); Influenza B Not Detected (Not Detect); Mycoplasma pneumoniae Not Detected (Not Detect); Parainfluenza Virus 1 Not Detected (Not Detect); Parainfluenza Virus 2 Not Detected (Not Detect); Parainfluenza Virus 3 Not Detected (Not Detect); Parainfluenza Virus 4 Not Detected (Not Detect); Respiratory Syncytial Virus Not Detected (Not Detect); SARS-CoV-2 Not Detected (Not Detect)
[2020-12-19] MEDS: Chlorhexidine Rinse 15 ML MOUTHWASH MM SCH ×2 (05:14→21:05)
[2020-12-19] MEDS: Heparin 25,000UNIT/250ML 1/2NS 25,000 UNIT/250 ML IV.SOLN IVC SCH (06:00)
[2020-12-19] MEDS ORDERED: NiCARdipine 2.5 MG/10 ML Syringe IVPB ONE (06:33)
[2020-12-19] MEDS ORDERED: *HR* Midazolam HCl 5 MG/5 ML VIAL IVP ONE (06:37)
[2020-12-19] MEDS ORDERED: *HR* FentaNYL (PF) 1,000 MCG/20 ML VIAL ONE (06:37)
[2020-12-19] MEDS ORDERED: Tranexamic Acid 1,000 MG/10 ML VIAL ONE ×2 (06:41→09:36)
[2020-12-19] MEDS ORDERED: Protamine Sulfate 250 MG/25 ML VIAL IVP ONE (06:41)
[2020-12-19] MEDS ORDERED: Calcium Gluconate 1,000 MG/10 ML VIAL ONE (06:41)
[2020-12-19] MEDS ORDERED: *HR* Rocuronium Bromide 50 MG/5 ML VIAL ONE (06:44)
[2020-12-19] MEDS ORDERED: *HR* PHENYLEPHRINE 1,000 MCG/10 ML SYRINGE IVP ONE (06:44)
[2020-12-19] MEDS ORDERED: Famotidine 20 MG/2 ML VIAL ONE (06:47)
[2020-12-19] MEDS ORDERED: *HR* Etomidate 20 MG/10 ML AMPUL IVP ONE (06:47)
[2020-12-19] MEDS ORDERED: EPINEPHrine 1 MG/ML VIAL ONE (06:47)
[2020-12-19] MEDS ORDERED: CeFAZolin Syr 2,000MG/20 ML 2,000 MG/20 ML SYRINGE IVPB ONE (07:00)
[2020-12-19] MEDS ORDERED: Dextrose 50 % in Water (Vial) 30 ML, Sodium Bicarbonate 20 MEQ, Lidocaine 1% 5 ML, Insu... TH ONE ×3 (07:45)
[2020-12-19] MEDS ORDERED: Dextrose 50 % in Water (Vial) 30 ML, Sodium Bicarbonate 20 MEQ, Potassium Chloride 15 M... TH ONE (07:45)
[2020-12-19] MEDS ORDERED: Norepinephrine 4 MG in 0.9 % Sodium Chloride 250 ML IVC PRN (07:45)
[2020-12-19] MEDS ORDERED: Insulin Human Regular 100 UNIT in 0.9 % Sodium Chloride 100 ML IV PRN (07:45)
[2020-12-19] MEDS ORDERED: Heparin 15,000 UNIT in 0.9 % Sodium Chloride 500 ML IV ONE (07:45)
[2020-12-19 08:10] LABS: ABG Base Excess -1 mEq/L (-2 to 3); ABG Chloride 101 mEq/L (98-107); ABG Glucose 112 mg/dL (60-95); ABG HCO3 25 mEq/L (21-27); ABG Ionized Calcium 1.14 mmol/L (1.15-1.35); ABG Oxygen Saturation 100 % (95-98); ABG PCO2 42 mmHg (35-45); ABG PH 7.38 pH Units (7.32-7.45); ABG PO2 374 mmHg (85-104); ABG TCO2 26 mEq/L (20-26)
[2020-12-19] MEDS ORDERED: Albumin Human 25% 25 GM/100 ML IV.SOLN IVPB ONE (08:19)
[2020-12-19] MEDS ORDERED: D5% in Water 250 ML IV BAG IV ONE (08:19)
[2020-12-19] MEDS ORDERED: *HR* Heparin 10,000 UNIT/10 ML VIAL IR ONE (08:19)
[2020-12-19] MEDS ORDERED: Mannitol 25% vial 12.5 GM/50 ML VIAL IVPB ONE (08:19)
[2020-12-19] MEDS ORDERED: Lidocaine 2% Syringe 100 MG/5 ML IVP ONE (08:19)
[2020-12-19] MEDS ORDERED: *HR* Phenylephrine 10 MG/ML VIAL IVC ONE (08:19)
[2020-12-19] MEDS ORDERED: *HR* Magnesium Sulfate 2 GM/50 ML PIGGYBACK IVPB ONE (08:19)
[2020-12-19] MEDS ORDERED: Tranexamic Acid 1,000 MG/10 ML VIAL IR ONE (08:19)
[2020-12-19] MEDS ORDERED: niCARdipine 40 MG/200 ML MLS IVC ONE (08:45)
[2020-12-19 09:28] LABS: ABG Base Excess -2 mEq/L (-2 to 3); ABG Chloride 103 mEq/L (98-107); ABG Glucose 150 mg/dL (60-95); ABG HCO3 24 mEq/L (21-27); ABG Ionized Calcium 1.01 mmol/L (1.15-1.35); ABG Oxygen Saturation 99 % (95-98); ABG PCO2 44 mmHg (35-45); ABG PH 7.35 pH Units (7.32-7.45); ABG PO2 141 mmHg (85-104); ABG TCO2 25 mEq/L (20-26)
[2020-12-19] MEDS ORDERED: Albumin Human 5% 50.0 GM/1,000 ML IV.SOLN ONE (09:55)
[2020-12-19] MEDS ORDERED: 0.9 % Sodium Chloride 250 ML ONE (09:56)
[2020-12-19 10:03] LABS: ABG Base Excess 0 mEq/L (-2 to 3); ABG Chloride 94 mEq/L (98-107); ABG Glucose 189 mg/dL (60-95); ABG HCO3 25 mEq/L (21-27); ABG Ionized Calcium 0.94 mmol/L (1.15-1.35); ABG PCO2 43 mmHg (35-45); ABG PH 7.38 pH Units (7.32-7.45); ABG PO2 > 630 mmHg (85-104); ABG TCO2 27 mEq/L (20-26)
[2020-12-19 10:37] LABS: ABG Base Excess -3 mEq/L (-2 to 3); ABG Chloride 95 mEq/L (98-107); ABG Glucose 181 mg/dL (60-95); ABG HCO3 23 mEq/L (21-27); ABG Ionized Calcium 1.03 mmol/L (1.15-1.35); ABG Oxygen Saturation 100 % (95-98); ABG PCO2 41 mmHg (35-45); ABG PH 7.35 pH Units (7.32-7.45); ABG PO2 627 mmHg (85-104); ABG TCO2 24 mEq/L (20-26)
[2020-12-19 11:11] LABS: ABG Base Excess -2 mEq/L (-2 to 3); ABG Chloride 102 mEq/L (98-107); ABG Glucose 158 mg/dL (60-95); ABG HCO3 23 mEq/L (21-27); ABG Ionized Calcium 1.31 mmol/L (1.15-1.35); ABG Oxygen Saturation 100 % (95-98); ABG PCO2 39 mmHg (35-45); ABG PH 7.38 pH Units (7.32-7.45); ABG PO2 184 mmHg (85-104); ABG TCO2 24 mEq/L (20-26)
[2020-12-19] MEDS ORDERED: *HR* Dextrose 50 % in Water (Vial) 50 ML VIAL IVP PRN (11:20)
[2020-12-19] MEDS ORDERED: Potassium Chloride 40 MEQ/200 ML BAG IVPB PRN (11:20)
[2020-12-19] MEDS ORDERED: Insulin Regular, Human 100 UNIT/ML IV PRN (11:20)
[2020-12-19] MEDS ORDERED: Ondansetron 4 MG/2 ML VIAL IVP PRN (11:23)
[2020-12-19] MEDS ORDERED: Albumin Human 5% 12.5 GM/250 ML IV.SOLN IVPB PRN (11:23)
[2020-12-19] MEDS ORDERED: Calcium Gluconate 1gm/50mL 1 GM/50 ML BAG IVPB PRN (11:23)
[2020-12-19] MEDS ORDERED: Acetaminophen 650 MG RECTAL SUPP RC PRN (11:23)
[2020-12-19] MEDS ORDERED: 0.9 % Sodium Chloride w KCl 20 MEQ/1,000 ML MLS IVC SCH (11:30)
[2020-12-19 12:15] LABS: ABG Base Excess 0 mEq/L (-2 to 3); ABG HCO3 25 mEq/L (21-27); ABG Oxygen Saturation 99 % (95-98); ABG PCO2 41 mmHg (35-45); ABG PH 7.39 pH Units (7.32-7.45); ABG PO2 134 mmHg (85-104); ABG TCO2 26 mEq/L (20-26); Blood Gas Modality ASSIST CONTROL; Blood Gas VT 600 cc
[2020-12-19 12:25] LABS: Basophils % 0.3 %; Mean Corpuscular Hemoglobin 30.9 pg (28.0-33.3); Red Blood Count 4.17 M/mcL (4.19-5.50)
[2020-12-19 12:27] LABS: Basophils # 0.1 K/mcL (0.0-0.2); Eosinophils # 0.2 K/mcL (0.0-0.6); Hematocrit 38.5 % (37.5-50.1); Hemoglobin 12.9 g/dL (12.9-16.9); Immature Granulocytes % 0.8 % (0-4); Immature Platelets 7.6 % (1.1-6.1); Lymphocytes # 1.7 K/mcL (0.6-4.6); Lymphocytes % 10.2 %; Mean Corpuscular HGB Conc 33.5 g/dL (31.6-35.5); Mean Corpuscular Volume 92.3 fL (83.0-100.0); Mean Platelet Volume 11.1 fL (9.4-12.4); Monocytes % 5.8 %; Neutrophils # 13.8 K/mcL (1.6-8.9); Platelet Count 82 K/mcL (140-400); Red Cell Distribution Width 13.3 % (11.5-14.5); Segmented Neutrophils % 81.9 %; White Blood Count 16.8 K/mcL (4.3-11.1)
[2020-12-19] MEDS: *HR* OxyCODONE/APAP 5/325 TABLET PO PRN ×2 (12:38→20:58)
[2020-12-19] MEDS: Metoclopramide 10 MG/2 ML VIAL IVP SCH ×3 (12:39→23:22)
[2020-12-19] MEDS: *HR* FentaNYL (PF) 100 MCG/2 ML VIAL IVP PRN (12:39)
[2020-12-19] MEDS: Pantoprazole 40 MG VIAL IVP SCH (12:39)
[2020-12-19] MEDS: Isosorbide MONOnitrate (24 HR) 60 MG TAB.ER.24H PO SCH (12:41)
[2020-12-19 12:42] LABS: INR 1.4; Prothrombin Time 15.6 Seconds (9.4-12.1)
[2020-12-19 12:45] LABS: Activated Partial Thrombo Time 24.8 Seconds (26.0-36.0)
[2020-12-19 12:47] LABS: BUN/Creatinine Ratio 15 (6-26); Blood Urea Nitrogen 11 mg/dL (8-23); Calcium 8.9 mg/dL (8.6-10.3); Carbon Dioxide 24 mEq/L (23-29); Chloride 104 mEq/L (98-107); Glucose 128 mg/dL (70-105); Magnesium 2.3 mg/dL (1.6-2.6); Osmolality,Calculated 283 (280-300); Potassium 3.8 mEq/L (3.5-5.1); Sodium 136 mEq/L (136-145); eGFR For African Americans > 60 (> 60); eGFR For Non-African Americans > 60 (> 60)
[2020-12-19] MEDS: Insulin Human Regular 100 UNIT in 0.9 % Sodium Chloride 100 ML IVC SCH (14:00)
[2020-12-19 15:41] LABS: ABG Base Excess -6 mEq/L (-2 to 3); ABG HCO3 20 mEq/L (21-27); ABG Oxygen Saturation 97 % (95-98); ABG PCO2 41 mmHg (35-45); ABG PO2 96 mmHg (85-104); ABG TCO2 22 mEq/L (20-26)
[2020-12-19] MEDS: CeFAZolin 2 GM/120 ML BAG IVPB SCH ×2 (15:48→23:22)
[2020-12-19 17:29] LABS: ABG Base Excess -3 mEq/L (-2 to 3); ABG HCO3 24 mEq/L (21-27); ABG Oxygen Saturation 95 % (95-98); ABG PCO2 47 mmHg (35-45); ABG PH 7.31 pH Units (7.32-7.45); ABG PO2 83 mmHg (85-104); ABG TCO2 25 mEq/L (20-26)
[2020-12-19] MEDS: niCARdipine 20 MG/200 ML MLS IVC SCH ×3 (19:41→22:32)
[2020-12-19] MEDS: Norepinephrine 4 MG/254 ML IV.SOLN IVC SCH (19:42)
[2020-12-20] MEDS: *HR* OxyCODONE/APAP 5/325 TABLET PO PRN ×5 (02:12→20:12)
[2020-12-20] MEDS: niCARdipine 20 MG/200 ML MLS IVC SCH ×7 (03:23→23:07)
[2020-12-20 03:36] LABS: Basophils % 0.1 %; Mean Corpuscular HGB Conc 32.6 g/dL (31.6-35.5); Mean Corpuscular Hemoglobin 30.7 pg (28.0-33.3); Mean Corpuscular Volume 94.1 fL (83.0-100.0); Segmented Neutrophils % 86.3 %
[2020-12-20 03:38] LABS: Eosinophils % 0.1 %; Hematocrit 38.3 % (37.5-50.1); Hemoglobin 12.5 g/dL (12.9-16.9); Immature Granulocytes % 0.7 % (0-4); Immature Platelets 9.4 % (1.1-6.1); Lymphocytes # 0.7 K/mcL (0.6-4.6); Mean Platelet Volume 11.3 fL (9.4-12.4); Monocytes # 1.6 K/mcL (0.0-1.3); Monocytes % 8.8 %; Neutrophils # 15.3 K/mcL (1.6-8.9); Red Blood Count 4.07 M/mcL (4.19-5.50); Red Cell Distribution Width 13.8 % (11.5-14.5); White Blood Count 17.7 K/mcL (4.3-11.1)
[2020-12-20 03:44] LABS: INR 1.3; Prothrombin Time 14.8 Seconds (9.4-12.1)
[2020-12-20 03:46] LABS: Activated Partial Thrombo Time 27.1 Seconds (26.0-36.0); BUN/Creatinine Ratio 16 (6-26); Blood Urea Nitrogen 16 mg/dL (8-23); Calcium 8.3 mg/dL (8.6-10.3); Carbon Dioxide 22 mEq/L (23-29); Chloride 104 mEq/L (98-107); Glucose 187 mg/dL (70-105); Magnesium 1.9 mg/dL (1.6-2.6); Osmolality,Calculated 286 (280-300); Potassium 4.4 mEq/L (3.5-5.1); Sodium 135 mEq/L (136-145); eGFR For African Americans > 60 (> 60); eGFR For Non-African Americans > 60 (> 60)
[2020-12-20 04:06] LABS: Platelet Count 92 K/mcL (140-400); Platelet Estimate Decreased (Normal)
[2020-12-20] MEDS: Metoclopramide 10 MG/2 ML VIAL IVP SCH ×4 (05:06→23:10)
[2020-12-20] MEDS: *HR* FentaNYL (PF) 100 MCG/2 ML VIAL IVP PRN (05:08)
[2020-12-20] MEDS ORDERED: D5% in Water 1,000 ML IVC PRN (07:05)
[2020-12-20] MEDS ORDERED: *HR* Dextrose 50 % in Water (Vial) 50 ML VIAL IVP PRN (07:05)
[2020-12-20] MEDS ORDERED: Dextrose Gel 15 GM/37.5 ML TUBE PO PRN ×2 (07:05)
[2020-12-20] MEDS: Pantoprazole 40 MG VIAL IVP SCH (07:35)
[2020-12-20] MEDS: Insulin LISPRO 300 UNITS/3 ML VIAL SUBQ SCH ×3 (07:36→16:57)
[2020-12-20] MEDS: Furosemide 20 MG/2 ML VIAL IVP SCH ×2 (07:36→20:12)
[2020-12-20] MEDS: Aspirin Enteric Coated 81 MG Tablet PO SCH (07:36)
[2020-12-20] MEDS: Chlorhexidine Rinse 15 ML MOUTHWASH MM SCH ×2 (07:36→20:12)
[2020-12-20] MEDS: Norepinephrine 4 MG/254 ML IV.SOLN IVC SCH (11:14)
[2020-12-20] MEDS: Insulin Human Regular 100 UNIT in 0.9 % Sodium Chloride 100 ML IVC SCH (11:34)
[2020-12-20] MEDS ORDERED: *HR* FentaNYL (PF) 100 MCG/2 ML VIAL IVP PRN (14:45)
[2020-12-20] MEDS: *HR* Heparin 5,000 UNIT/ML VIAL SQ SCH (16:56)
[2020-12-20] MEDS ORDERED: Insulin LISPRO 300 UNITS/3 ML VIAL SUBQ SCH (21:00)
[2020-12-21] MEDS: *HR* OxyCODONE/APAP 5/325 TABLET PO PRN ×5 (00:12→18:45)
[2020-12-21 04:06] LABS: Basophils % 0.1 %; Eosinophils % 0.1 %; Hematocrit 33.1 % (37.5-50.1); Hemoglobin 10.7 g/dL (12.9-16.9); Immature Platelets 10.8 % (1.1-6.1); Lymphocytes % 6.2 %; Mean Corpuscular HGB Conc 32.3 g/dL (31.6-35.5); Mean Corpuscular Hemoglobin 30.8 pg (28.0-33.3); Mean Corpuscular Volume 95.4 fL (83.0-100.0); Mean Platelet Volume 11.6 fL (9.4-12.4); Monocytes # 1.4 K/mcL (0.0-1.3); Monocytes % 8.7 %; Neutrophils # 13.3 K/mcL (1.6-8.9); Platelet Count 87 K/mcL (140-400); Red Blood Count 3.47 M/mcL (4.19-5.50); Red Cell Distribution Width 13.8 % (11.5-14.5); Segmented Neutrophils % 83.9 %; White Blood Count 15.8 K/mcL (4.3-11.1)
[2020-12-21 04:17] LABS: BUN/Creatinine Ratio 25 (6-26); Blood Urea Nitrogen 22 mg/dL (8-23); Calcium 8.7 mg/dL (8.6-10.3); Carbon Dioxide 28 mEq/L (23-29); Chloride 101 mEq/L (98-107); Glucose 163 mg/dL (70-105); Osmolality,Calculated 287 (280-300); Potassium 4.1 mEq/L (3.5-5.1); Sodium 135 mEq/L (136-145); eGFR For African Americans > 60 (> 60); eGFR For Non-African Americans > 60 (> 60)
[2020-12-21] MEDS: niCARdipine 20 MG/200 ML MLS IVC SCH (04:30)
[2020-12-21] MEDS: Metoclopramide 10 MG/2 ML VIAL IVP SCH ×4 (05:08→23:11)
[2020-12-21] MEDS: *HR* Heparin 5,000 UNIT/ML VIAL SQ SCH ×2 (05:09→16:52)
[2020-12-21] MEDS: Pantoprazole 40 MG VIAL IVP SCH (07:26)
[2020-12-21] MEDS: Chlorhexidine Rinse 15 ML MOUTHWASH MM SCH ×2 (07:26→20:07)
[2020-12-21] MEDS: Furosemide 20 MG/2 ML VIAL IVP SCH ×2 (07:27→20:23)
[2020-12-21] MEDS: Isosorbide MONOnitrate (24 HR) 60 MG TAB.ER.24H PO SCH (07:27)
[2020-12-21] MEDS: Aspirin Enteric Coated 81 MG Tablet PO SCH (07:27)
[2020-12-21] MEDS: Insulin LISPRO 300 UNITS/3 ML VIAL SUBQ SCH ×4 (07:28→20:22)
[2020-12-21] MEDS ORDERED: lisinopriL 10 MG TABLET PO SCH (09:00)
[2020-12-21] MEDS ORDERED: Naloxone 0.4 MG/ML INJ IVP PRN (09:30)
[2020-12-21] MEDS ORDERED: D5% in Water 1,000 ML IVC PRN (09:30)
[2020-12-21] MEDS ORDERED: *HR* Dextrose 50 % in Water (Vial) 50 ML VIAL IVP PRN (09:30)
[2020-12-21] MEDS ORDERED: Dextrose Gel 15 GM/37.5 ML TUBE PO PRN ×2 (09:30)
[2020-12-21] MEDS ORDERED: Ondansetron 4 MG/2 ML VIAL IVP PRN (09:30)
[2020-12-21] MEDS ORDERED: Acetaminophen 325 MG TABLET PO PRN (09:30)
[2020-12-21] MEDS ORDERED: Potassium Chloride 40 MEQ/200 ML BAG IVPB PRN (09:30)
[2020-12-21] MEDS ORDERED: Insulin Regular, Human 100 UNIT/ML IV PRN (09:30)
[2020-12-21] MEDS ORDERED: Nitroglycerin 0.4 MG TAB.SUBL SL PRN (09:30)
[2020-12-22 01:12] LABS: Basophils % 0.1 %; Red Cell Distribution Width 13.4 % (11.5-14.5)
[2020-12-22 01:13] LABS: Eosinophils % 0.2 %; Hematocrit 31.8 % (37.5-50.1); Hemoglobin 10.5 g/dL (12.9-16.9); Immature Granulocytes % 0.5 % (0-4); Immature Platelets 9.3 % (1.1-6.1); Lymphocytes # 0.9 K/mcL (0.6-4.6); Lymphocytes % 6.6 %; Mean Corpuscular Hemoglobin 31.3 pg (28.0-33.3); Mean Corpuscular Volume 94.9 fL (83.0-100.0); Monocytes # 1.3 K/mcL (0.0-1.3); Monocytes % 9.4 %; Red Blood Count 3.35 M/mcL (4.19-5.50); Segmented Neutrophils % 83.2 %; White Blood Count 13.4 K/mcL (4.3-11.1)
[2020-12-22 01:14] LABS: Neutrophils # 11.2 K/mcL (1.6-8.9); Platelet Count 99 K/mcL (140-400)
[2020-12-22 01:30] LABS: BUN/Creatinine Ratio 38 (6-26); Blood Urea Nitrogen 36 mg/dL (8-23); Calcium 8.5 mg/dL (8.6-10.3); Carbon Dioxide 25 mEq/L (23-29); Chloride 96 mEq/L (98-107); Glucose 130 mg/dL (70-105); Osmolality,Calculated 278 (280-300); Potassium 4.1 mEq/L (3.5-5.1); Sodium 129 mEq/L (136-145); eGFR For African Americans > 60 (> 60); eGFR For Non-African Americans > 60 (> 60)
[2020-12-22] MEDS: *HR* OxyCODONE/APAP 5/325 TABLET PO PRN (05:14)
[2020-12-22] MEDS: *HR* Heparin 5,000 UNIT/ML VIAL SQ SCH ×2 (05:15→16:38)
[2020-12-22] MEDS: Metoclopramide 10 MG/2 ML VIAL IVP SCH (05:16)
[2020-12-22] MEDS: Multivit/Ca/Min/Fe/FA 1 TAB TABLET PO SCH (07:30)
[2020-12-22] MEDS: lisinopriL 10 MG TABLET PO SCH (07:30)
[2020-12-22] MEDS: Aspirin Enteric Coated 81 MG Tablet PO SCH (07:31)
[2020-12-22] MEDS: Furosemide 20 MG/2 ML VIAL IVP SCH ×2 (07:31→20:43)
[2020-12-22] MEDS: Chlorhexidine Rinse 15 ML MOUTHWASH MM SCH ×2 (07:31→20:20)
[2020-12-22] MEDS: Cyanocobalamin (B-12) 1,000 MCG TABLET PO SCH (07:31)
[2020-12-22] MEDS: Insulin LISPRO 300 UNITS/3 ML VIAL SUBQ SCH ×4 (08:11→20:38)
[2020-12-22] MEDS ORDERED: Pantoprazole 40 MG VIAL IVP SCH (09:00)
[2020-12-23 02:36] LABS: Basophils % 0.1 %; Eosinophils % 0.2 %; Hematocrit 33.3 % (37.5-50.1); Immature Granulocytes % 0.8 % (0-4); Lymphocytes # 0.9 K/mcL (0.6-4.6); Lymphocytes % 8.6 %; Mean Corpuscular Hemoglobin 31.1 pg (28.0-33.3); Mean Corpuscular Volume 94.1 fL (83.0-100.0); Monocytes % 9.5 %; Neutrophils # 8.8 K/mcL (1.6-8.9); Platelet Count 147 K/mcL (140-400); Red Blood Count 3.54 M/mcL (4.19-5.50); Red Cell Distribution Width 13.5 % (11.5-14.5); Segmented Neutrophils % 80.8 %; White Blood Count 10.8 K/mcL (4.3-11.1)
[2020-12-23 02:54] LABS: BUN/Creatinine Ratio 34 (6-26); Blood Urea Nitrogen 28 mg/dL (8-23); Calcium 8.4 mg/dL (8.6-10.3); Carbon Dioxide 27 mEq/L (23-29); Chloride 93 mEq/L (98-107); Glucose 132 mg/dL (70-105); Osmolality,Calculated 277 (280-300); Potassium 3.5 mEq/L (3.5-5.1); Sodium 130 mEq/L (136-145); eGFR For African Americans > 60 (> 60); eGFR For Non-African Americans > 60 (> 60)
[2020-12-23] MEDS: *HR* Heparin 5,000 UNIT/ML VIAL SQ SCH ×2 (05:29→17:10)
[2020-12-23] MEDS: Insulin LISPRO 300 UNITS/3 ML VIAL SUBQ SCH ×4 (07:55→20:48)
[2020-12-23] MEDS: Multivit/Ca/Min/Fe/FA 1 TAB TABLET PO SCH (07:56)
[2020-12-23] MEDS: lisinopriL 10 MG TABLET PO SCH (07:56)
[2020-12-23] MEDS: Cyanocobalamin (B-12) 1,000 MCG TABLET PO SCH (07:56)
[2020-12-23] MEDS: Aspirin Enteric Coated 81 MG Tablet PO SCH (07:56)
[2020-12-23] MEDS: Chlorhexidine Rinse 15 ML MOUTHWASH MM SCH ×2 (07:57→21:14)
[2020-12-23 11:00] LABS: Magnesium 2.3 mg/dL (1.6-2.6)
[2020-12-23] MEDS: Furosemide 40 MG/4 ML VIAL IVP SCH ×2 (11:16→21:14)
[2020-12-24] MEDS: *HR* OxyCODONE/APAP 5/325 TABLET PO PRN (01:04)
[2020-12-24 03:13] LABS: BUN/Creatinine Ratio 33 (6-26); Blood Urea Nitrogen 27 mg/dL (8-23); Calcium 8.3 mg/dL (8.6-10.3); Carbon Dioxide 27 mEq/L (23-29); Chloride 93 mEq/L (98-107); Glucose 152 mg/dL (70-105); Magnesium 2.1 mg/dL (1.6-2.6); Osmolality,Calculated 276 (280-300); Potassium 3.5 mEq/L (3.5-5.1); Sodium 129 mEq/L (136-145); eGFR For African Americans > 60 (> 60); eGFR For Non-African Americans > 60 (> 60)
[2020-12-24] MEDS: *HR* Heparin 5,000 UNIT/ML VIAL SQ SCH (06:14)
[2020-12-24] MEDS: Insulin LISPRO 300 UNITS/3 ML VIAL SUBQ SCH ×2 (08:22→11:50)
[2020-12-24] MEDS: Aspirin Enteric Coated 81 MG Tablet PO SCH (08:23)
[2020-12-24] MEDS: Multivit/Ca/Min/Fe/FA 1 TAB TABLET PO SCH (08:23)
[2020-12-24] MEDS: Chlorhexidine Rinse 15 ML MOUTHWASH MM SCH (08:23)
[2020-12-24] MEDS: Cyanocobalamin (B-12) 1,000 MCG TABLET PO SCH (08:23)
[2020-12-24] MEDS: lisinopriL 10 MG TABLET PO SCH (08:23)
[2020-12-24] MEDS: Furosemide 40 MG/4 ML VIAL IVP SCH (08:24)
[2020-12-24 11:35] VITALS: BP 107/77
[2020-12-24] MEDS ORDERED: ALPRAZolam 0.25 MG TABLET PO ONE (13:50)
[2020-12-24] MEDS ORDERED: ALPRAZolam 0.25 MG TABLET PO PRN (21:00)
== END 2020-12-24 15:54 | disposition home or self-care (01) | DRG 234 ==
LOC: EMEROOARM 18:58 → 3BNU 18:58 → SUATTDRO 21:56 → 3BNU 21:56 → ICNU 12-19 07:44 → 2NNU 12-21 19:09
PROVIDERS: ADMIT Family Medicine; ATTEND Registered Nurse